=== PATIENT | female | born 1945 | race Caucasian/White ===

== ENCOUNTER 2019-02-02 01:47 | Inpatient (IN) | payer OTHER ==
[2019-02-02] VITALS (7 sets, daily range): BP systolic 115–139; BP diastolic 58–74; PULSE 75–88; RESP 18–20; Ht 170.2 cm; Wt 76.6 kg
[~2019-02-02] VITALS: Ht 170.2 cm; Wt 76.6 kg
[2019-02-02] MEDS ORDERED: SOD CHLORIDE 0.9% 500 ML IV STA (06:33)
[2019-02-02] MEDS ORDERED: AZITHROMYCIN 250 MG TAB PO ONE (08:00)
[2019-02-02] MEDS ORDERED: IBUPROFEN 800 MG TAB PO ONE (08:00)
[2019-02-02] MEDS ORDERED: ASPIRIN 325 MG TAB PO ONE (08:30)
[2019-02-02] MEDS ORDERED: ACETAMINOPHEN 325 MG TAB PO PRN ×2 (08:30→11:00)
[2019-02-02] MEDS ORDERED: ONDANSETRON 4 MG INJ IV PRN ×2 (08:30→11:00)
--- NOTE | 2019-02-02 09:23 | ERD ---
ER Documentation Chief Complaint Chief Complaint glf about 1 hour ago, c/o laceration right upper eyelid. denies ko HPI Patient is a 73-year-old female with hypertension and diabetes who presents after a fall. The patient has an abrasion over her right eye. She fell last night at 2130 against her dresser and she was diffusely weak. She laid against her dresser for a number of hours until a family member found her. She felt we ak prior to falling. She has a cough but she denies chest pain. She had subjective fever at home. She has not on blood thinning medications. She does have a primary doctor. ROS All systems reviewed and are negative except as per history of present illness. Allergies Allergies: Coded Allergies: No Known Drug Allergies (Verified Allergy, Unknown, 02/02/19) PMhx/Soc History of Surgery: Yes (cholesystectomy) Anesthesia Reaction: No Hx Cardiac Disorders: Yes (DM (diet controlled)) Hx Psychiatric Problems: No Hx Miscellaneous Medical Probl: Yes (enlarged thyroid) Hx Alcohol Use: No Hx Substance Use: No Hx Tobacco Use: No Smoking Status: Never smoker FmHx Family History: No diabetes Physical Exam Vitals Vital Signs Date Temp Pulse Resp B/P (MAP) Pulse Ox O2 O2 Flow FiO2 Time Delivery Rate 02/02/19 83 22 144/80 96 Room Air 08:30 (101) 02/02/19 97.8 96 23 122/70 96 Room Air 06:50 (87) 02/02/19 99.7 115 18 137/65 96 01:53 (89) Physical Exam Const: No acute distress Head: Atraumatic Eyes: Normal Conjunctiva ENT: Normal External Ears, Nose and Mouth. Neck: Full range of motion. No meningismus. Resp: Clear to auscultation bilaterally Cardio: Regular rate and rhythm, no murmurs Abd: Soft, non tender, non distended. Normal bowel sounds Skin: Pale skin, abrasion over the right eye, skin tear of the epidermis to the chest wall Back: No midline or flank tenderness Ext: No cyanosis, or edema Neur: Awake and alert Psych: Normal Mood and Affect Result Diagram: 02/02/19 0633 02/02/19 0658 Results 24 hrs Laboratory Tests Test 02/02/19 06:33 02/02/19 06:58 White Blood Count 17.4 10^3/ul Red Blood Count 4.34 10^6/ul Hemoglobin 11.8 g/dl Hematocrit 37.1 % Mean Corpuscular Volume 85.5 fl Mean Corpuscular Hemoglobin 27.2 pg Mean Corpuscular Hemoglobin Concent 31.8 g/dl Red Cell Distribution Width 13.5 % Platelet Count 250 10^3/UL Mean Platelet Volume 9.0 fl Immature Granulocytes % 0.800 % Neutrophils % 89.6 % Lymphocytes % 3.9 % Monocytes % 5.4 % Eosinophils % 0.0 % Basophils % 0.3 % Nucleated Red Blood Cells % 0.0 /100WBC Immature Granulocytes # 0.140 10^3/ul Neutrophils # 15.6 10^3/ul Lymphocytes # 0.7 10^3/ul Monocytes # 0.9 10^3/ul Eosinophils # 0.0 10^3/ul Basophils # 0.1 10^3/ul Nucleated Red Blood Cells # 0.0 10^3/ul Prothrombin Time 13.3 Sec Prothrombin Time Ratio 1.0 INR International Normalized Ratio 1.00 Activated Partial Thromboplast Time 32.1 Sec Sodium Level 144 mmol/L Potassium Level 3.9 mmol/L Chloride Level 112 mmol/L Carbon Dioxide Level 23 mmol/L Anion Gap 9 Blood Urea Nitrogen 35 mg/dl Creatinine 0.71 mg/dl Est Glomerular Filtrat Rate mL/min mL/min Glucose Level 157 mg/dl Calcium Level 10.6 mg/dl Troponin I 0.674 ng/ml Current Medications Medications Dose Sig/Abhi Start Time Status Last (Trade) Ordered Route PRN Stop Time Admin Dose Reason Admin Sodium 500 ml @ Q1H STAT 02/02/19 DC 02/02/19 Chloride 500 mls/hr IV 06:33 02/02/19 07:04 07:32 500 mg ONCE ONCE 02/02/19 DC 02/02/19 Azithromycin PO 08:00 02/02/19 08:08 (Zithromax) 08:01 Ibuprofen 800 mg ONCE ONCE 02/02/19 DC 02/02/19 (Motrin) PO 08:00 02/02/19 08:08 08:01 Aspirin 325 mg ONCE ONCE 02/02/19 DC 02/02/19 (Aspirin) PO 08:30 02/02/19 08:08 08:31 Ondansetron 4 mg BRIDGE ORDER 02/02/19 HCl (Zofran PRN IV 08:30 02/03/19 Inj) NAUSEA/VOMITI 08:29 NG 650 mg ER BRIDGE 02/02/19 Acetaminophen PRN PO 08:30 02/03/19 (Tylenol .MILD PAIN 08:29 Tab) 1-3 OR TEMP Procedures/MDM EKG read by me: Rate/Rhythm: Regular rate and rhythm at a normal rate Intervals: Normal Impression: No evidence of ischemia or arrhythmia Chest x-ray read by radiology shows atelectasis versus pneumonia. Patient is a 73-year-old female with diabetes and hypertension who presents with weakness and fall. Chest x-ray showed atelectasis versus pneumonia but I doubt sepsis. The patient was given Zithromax 500 mg initially in the emergency department. The patient was eventually found to have a positive troponin and I am concerned about an NSTEMI. EKG shows no signs of ST elevations. The patient will be admitted to the care of Dr. Khoury to a telemetry bed. The patient was given aspirin empirically. Departure Diagnosis: Primary Impression: NSTEMI (non-ST elevated myocardial infarction) Additional Impressions: Abrasion Fall Encounter type: initial encounter Qualified Codes: W19.XXXA - Unspecified fall, initial encounter Condition: Serious EVAN ARREAGA MD Feb 02, 2019 09:23
[2019-02-02] MEDS ORDERED: FOLI-49 PO (09:30)
[2019-02-02] MEDS ORDERED: OMEP20CA16 PO (09:30)
[2019-02-02] MEDS ORDERED: PRED2.5T3 PO (09:31)
[2019-02-02] MEDS ORDERED: HYDR200T5 PO (09:31)
[2019-02-02] MEDS ORDERED: PRED5TAB PO (09:31)
[2019-02-02] MEDS ORDERED: CALC500T91 PO (09:32)
[2019-02-02] MEDS ORDERED: ERGO500013 PO (09:33)
[2019-02-02] MEDS ORDERED: PANTOPRAZOLE 40 MG INJ IV ONE (11:00)
[2019-02-02] MEDS ORDERED: NACL 0.9% 3 ML SYG IV SCH (11:00)
[2019-02-02] MEDS ORDERED: DOCUSATE SODIUM 100 MG CAP PO PRN (11:00)
[2019-02-02] MEDS ORDERED: ENOXAPARIN 30 MG/0.3 ML SYG SC SCH (12:00)
[2019-02-02] MEDS: SOD CHLORIDE 0.9% 1,000 ML IV SCH (12:35)
[2019-02-02] MEDS: HYDROXYCHLOROQUINE 200 MG TAB PO SCH (12:38)
[2019-02-02] MEDS: ENOXAPARIN 100 MG/ML SYG SC SCH ×2 (13:30→21:24)
--- NOTE | 2019-02-02 15:17 | QN ---
Documentation Comment seen and examined BARBARA CATALAN MD Feb 02, 2019 15:17
--- NOTE | 2019-02-02 16:30 | HP ---
DATE OF ADMISSION: 02/02/2019 REASON FOR ADMISSION: Fall. HISTORY OF PRESENT ILLNESS: This is a 73-year-old female with a past medical history of hypertension and hyperlipidemia who presented to the emergency department after she had fall at home. According to the patient, she woke up from her bed last night, all of a sudden she felt dizzy and hit against a dresser and she was laid against her dresser for a number of hours until the family member found her. She was feeling also weak prior to falling. The patient was saying that she was having some intermittent left-sided chest pain radiating to the back for a few days. The patient was also having some subjective fevers at home. Patient has history of arthritis. Takes prednisone at home. Denies any history of orthopnea, PND; however, patient notices lower extremity edema. On arrival to ED, vital signs were temperature 99.7, heart rate 115, respirations 18, blood pressure 137/85, saturating 96%. White count 17.4, BUN of 35, creatinine 0.7 and the patient received NS, Zithromax, Motrin, aspirin and Zofran. EKG did not show any acute ST or T wave changes. The patient had a chest x-ray that showed increased density at the bases, likely due to atelectasis, left basilar infiltrate could not be ruled out and the patient was also found to have elevated troponin of 0.674 and was admitted for further management. PAST MEDICAL HISTORY: 1. Hypertension. 2. Arthritis. 3. GERD. 4. Vitamin D deficiency. ALLERGIES: NONE. PAST SURGICAL HISTORY: Cholecystectomy and . MEDICATIONS: Taking at home: 1. Plaquenil 200. 2. Calcium carbonate. 3. Prilosec. 4. Prednisone 2.5 q.p.m. and 5 q.a.m. 5. Ergocalciferol. 6. Folic acid. SOCIAL HISTORY: No history of smoking, alcohol or any drug use. Lives at home with family. FAMILY HISTORY: Noncontributory. REVIEW OF SYSTEMS: As above. PHYSICAL EXAMINATION: VITAL SIGNS: Currently, blood pressure 139/66, afebrile, heart rate 81, respirations 20, saturating 98% on room air. GENERAL: The patient is awake, alert, oriented, does not appear to be on any acute distress. HEENT: Pupils equal, round, reactive to light.rt eye laceration on eyelid NECK: Supple, no JVD. HEART: Regular rate and rhythm. LUNGS: Some decreased breath sounds at the bases. The patient has a left shoulder pain status post fall. Tender to palpation. ABDOMEN: Soft, nontender, nondistended, positive normoactive bowel sounds. EXTREMITIES: There is 1+ edema. skin tear of chest DIAGNOSTIC DATA: Shows sodium 144, potassium 3.9, chloride 112, bicarbonate 23, BUN of 35, creatinine 0.79, calcium 10.6. CK 14,000. Troponin 0.674, white count 17.4, hemoglobin 11.8, platelet count 250. CT of the head is no acute intracranial abnormality. ASSESSMENT AND PLAN: This is a 73-year-old female with: 1. Status post fall. The patient was feeling dizzy before the episode and was having chest pain, could be secondary to non-STEMI/carotid disease/arrhythmia. 2. Elevated troponin, likely secondary to ACS. 3. Fevers, leukocytosis secondary to SIRS source, questionable pneumonia. 4. Questionable rhabdo. 5. History of arthritis. 6. Hypercalcemia on calcium supplement. 7. Arthritis on steroids. 8 Leukocytosis PLAN: At this period of time, the patient will be admitted to tele. The patient will be on aspirin, statin, Lovenox. Echo has been ordered. The patient will get CK-MB serially. Cardiology consult has been consulted. We will start the patient also on broad spectrum IV antibiotics, IV fluids and we will check UA. Rest of the treatment will depend of the patient's hospitalization course. Dictated By: BARBARA MCKEON/MANJULA Conf#: [id number] DID#: [id number] NATA
[2019-02-02] MEDS: CEFTRIAXONE 1 GM/50 ML (PMX) 50 ML IVPB SCH (16:40)
[2019-02-02] MEDS ORDERED: CALCIUM CARBONATE 1.25 GM TAB PO SCH (21:00)
[2019-02-02] MEDS: predniSONE 2.5 MG TAB PO SCH (21:16)
[2019-02-03] VITALS (12 sets, daily range): BP systolic 139–156; BP diastolic 67–95; PULSE 82–97; RESP 18–19
[2019-02-03] MEDS: SOD CHLORIDE 0.9% 1,000 ML IV SCH ×4 (00:23→22:41)
[2019-02-03] MEDS ORDERED: SOD CHLORIDE 0.9% 100 ML ONE (08:38)
[2019-02-03] MEDS ORDERED: IOHEXOL 100 ML ONE (08:38)
[2019-02-03] MEDS: HYDROXYCHLOROQUINE 200 MG TAB PO SCH (08:51)
[2019-02-03] MEDS: predniSONE 5 MG TAB PO SCH (08:51)
[2019-02-03] MEDS: ENOXAPARIN 100 MG/ML SYG SC SCH ×2 (09:40→20:34)
[2019-02-03] MEDS: AZITHROMYCIN 500 MG in SOD CHLORIDE 0.9% 250 ML IVPB SCH (09:53)
--- NOTE | 2019-02-03 12:22 | PN ---
Date/Time of Note Date/Time of Note DATE: 02/03/19 TIME: 12:22 Assessment/Plan VTE Prophylaxis Risk score (from Ns)>0 risk: 7 SCD applied (from Ns): Yes Pharmacological prophylaxis: NA/contraindicated Pharm contraindication: low risk/ambulating Lines/Catheters IV [facility] Saline Lock Urinary Cath still in place: No Assessment/Plan Hospital Course 73-year-old female with: 1. Status post fall. The patient was feeling dizzy before the episode and was having chest pain, could be secondary to non-STEMI/carotid disease/arrhythmia. 2. Elevated troponin, likely secondary to ACS. 3. Fevers, leukocytosis secondary to SIRS source, questionable pneumonia. 4. Rhabdomyolysis likely secondary to prolonged lying down on the ground status post fall 5. History of arthritis. 6. Hypercalcemia on calcium supplement. 7. Arthritis on steroids. 8 Leukocytosis 9 hx rheumatoid arthritis 10 UTI Plan -CWWith aspirin/statin/Lovenox -X-rays of the bilateral shoulders due to pain -CW with NS due to rhabdomyolysis -Echo pending -Given Rocephin and azithromycin -Send urine culture -Cardiology to determine whether stress test versus angiogram Result Diagram: 02/03/19 0547 02/03/19 0547 Results 24hrs Laboratory Tests Test 02/02/19 16:04 02/03/19 05:47 02/03/19 09:46 Creatine Kinase 09850 H Creatine Kinase Index 1.2 Creatinine Kinase MB (Mass) 152.00 H Troponin I 0.452 *H White Blood Count 8.2 # Red Blood Count 3.66 L Hemoglobin 9.9 L Hematocrit 31.5 L Mean Corpuscular Volume 86.1 Mean Corpuscular Hemoglobin 27.0 L Mean Corpuscular 31.4 L Hemoglobin Concent Red Cell Distribution Width 14.1 Platelet Count 195 # Mean Platelet Volume 10.1 Immature Granulocytes % 0.500 H Neutrophils % 85.1 H Lymphocytes % 8.0 L Monocytes % 5.6 Eosinophils % 0.7 Basophils % 0.1 Nucleated Red Blood Cells % 0.0 Immature Granulocytes # 0.040 H Neutrophils # 7.0 Lymphocytes # 0.7 L Monocytes # 0.5 Eosinophils # 0.1 Basophils # 0.0 Nucleated Red Blood Cells # 0.0 D-Dimer > 19359.00 H Sodium Level 144 Potassium Level 3.6 Chloride Level 114 H Carbon Dioxide Level 22 Anion Gap 8 Blood Urea Nitrogen 20 # Creatinine 0.46 Est Glomerular Filtrat Rate mL/min Glucose Level 99 # Calcium Level 9.5 Phosphorus Level 2.8 Magnesium Level 1.9 Urine Color YELLOW Urine Clarity SLIGHTLY CLOUDY A Urine pH 5.0 Urine Specific [place] 1.019 Urine Ketones 2+ H Urine Nitrite NEGATIVE Urine Bilirubin NEGATIVE Urine Urobilinogen NEGATIVE Urine Leukocyte Esterase 3+ H Urine Microscopic RBC 1 Urine Microscopic WBC 179 H Urine Squamous Epithelial Cells FEW Urine Bacteria FEW A Urine Hemoglobin 1+ H Urine Glucose NEGATIVE Urine Total Protein NEGATIVE Subjective 24 Hr Interval Summary Free Text/Dictation Still has pain generlised trop elevated Exam/Review of Systems Exam Vitals Vital Signs Date Temp Pulse Resp B/P (MAP) Pulse Ox O2 O2 Flow FiO2 Time Delivery Rate 02/03/19 93 08:00 02/03/19 97.9 19 156/77 99 07:59 (103) 02/02/19 Room Air 10:15 Intake and Output 02/02/19 02/02/19 02/03/19 1515:00 23:00 07:00 IntakeIntake Total 850 ml 400 ml BalanceBalance 850 ml 400 ml Exam ENERAL: The patient is awake, alert, oriented, does not appear to be on any acute distress. HEENT: Pupils equal, round, reactive to light.rt eye laceration on eyelid NECK: Supple, no JVD. HEART: Regular rate and rhythm. LUNGS: Some decreased breath sounds at the bases. The patient has a left shoulder pain status post fall. Tender to palpation. ABDOMEN: Soft, nontender, nondistended, positive normoactive bowel sounds. EXTREMITIES: There is 1+ edema. skin tear of chest Results Results 24hrs Laboratory Tests Test 02/02/19 16:04 02/03/19 05:47 02/03/19 09:46 Creatine Kinase 59627 H Creatine Kinase Index 1.2 Creatinine Kinase MB (Mass) 152.00 H Troponin I 0.452 *H White Blood Count 8.2 # Red Blood Count 3.66 L Hemoglobin 9.9 L Hematocrit 31.5 L Mean Corpuscular Volume 86.1 Mean Corpuscular Hemoglobin 27.0 L Mean Corpuscular 31.4 L Hemoglobin Concent Red Cell Distribution Width 14.1 Platelet Count 195 # Mean Platelet Volume 10.1 Immature Granulocytes % 0.500 H Neutrophils % 85.1 H Lymphocytes % 8.0 L Monocytes % 5.6 Eosinophils % 0.7 Basophils % 0.1 Nucleated Red Blood Cells % 0.0 Immature Granulocytes # 0.040 H Neutrophils # 7.0 Lymphocytes # 0.7 L Monocytes # 0.5 Eosinophils # 0.1 Basophils # 0.0 Nucleated Red Blood Cells # 0.0 D-Dimer > 80804.00 H Sodium Level 144 Potassium Level 3.6 Chloride Level 114 H Carbon Dioxide Level 22 Anion Gap 8 Blood Urea Nitrogen 20 # Creatinine 0.46 Est Glomerular Filtrat Rate mL/min Glucose Level 99 # Calcium Level 9.5 Phosphorus Level 2.8 Magnesium Level 1.9 Urine Color YELLOW Urine Clarity SLIGHTLY CLOUDY A Urine pH 5.0 Urine Specific [place] 1.019 Urine Ketones 2+ H Urine Nitrite NEGATIVE Urine Bilirubin NEGATIVE Urine Urobilinogen NEGATIVE Urine Leukocyte Esterase 3+ H Urine Microscopic RBC 1 Urine Microscopic WBC 179 H Urine Squamous Epithelial Cells FEW Urine Bacteria FEW A Urine Hemoglobin 1+ H Urine Glucose NEGATIVE Urine Total Protein NEGATIVE Medications Medication Current Medications Sodium Chloride 1,000 ml @ 50 mls/hr Q20H IV Last administered on 02/03/19 08:14; Admin Dose 100 MLS/HR; Start 02/02/19 at 10:53 IV Flush (NS 3 ml) 3 ml PER PROTOCOL IV ; Start 02/02/19 at 11:00 Ondansetron HCl (Zofran Inj) 4 mg Q6H PRN IV NAUSEA/VOMITING; Start 02/02/19 at 11:00 Acetaminophen (Tylenol Tab) 650 mg Q6H PRN PO .PAIN 1-3 OR TEMP Last administered on 02/02/19 16:05; Admin Dose 650 MG; Start 02/02/19 at 11:00 Docusate Sodium (Colace) 100 mg Q12H PRN PO .CONSTIPATION; Start 02/02/19 at 11:00 Hydroxychloroquine Sulfate (Plaquenil) 200 mg DAILY PO Last administered on 02/03/19 08:51; Admin Dose 200 MG; Start 02/02/19 at 13:00 Prednisone (Prednisone) 2.5 mg QPM PO Last administered on 02/02/19 21:16; Admin Dose 2.5 MG; Start 02/02/19 at 21:00 Prednisone (Prednisone) 5 mg QAM PO Last administered on 02/03/19 08:51; Admin Dose 5 MG; Start 02/03/19 at 09:00 Enoxaparin Sodium (Lovenox) 75 mg Q12 SC Last administered on 02/03/19 09:40; Admin Dose 75 MG; Start 02/02/19 at 13:30 Ceftriaxone Sodium 50 ml @ 100 mls/hr Q24H IVPB Last administered on 02/02/19 16:40; Admin Dose 100 MLS/HR; Start 02/02/19 at 15:30 Azithromycin 500 mg/Sodium Chloride 250 ml @ 250 mls/hr DAILY IVPB Last administered on 02/03/19 09:53; Admin Dose 250 MLS/HR; Start 02/03/19 at 09:00 BARBARA CATALAN MD Feb 03, 2019 12:22
[2019-02-03] MEDS ORDERED: morphine 2 MG INJ IV PRN (12:30)
[2019-02-03] MEDS: CEFTRIAXONE 1 GM/50 ML (PMX) 50 ML IVPB SCH (15:24)
--- NOTE | 2019-02-03 16:34 | RADRPT ---
Echocardiogram Report Patient Name: MALATHI TORRESPatient ID: [id number] : 1945 (74y )Study Date: 02/02/2019 1:38:27 PM Gender: FAccession #: [id number] Tech: Alayna Arnold [facility] Location: [facility] Ref.Physician: BARBARA CATALAN Height(Cm): BSA: Weight(Kg): Quality: AdequateAccount #: Procedures: Echocardiographic Report: Transthoracic echocardiogram with complete 2D, M-Mode, and doppler examination. Indications: Elevated troponin. Measurements: 2D/M Mode Doppler Measurement Value Normal Range Measurement Value Normal Range LVIDd 2D 3.0 [ 3.8 - 5.2 ] cm AV Peak Austen 1.5 [ 100.0 - 170.0 ] cm/sec LVIDs 2D 1.6 [ 2.2 - 3.5 ] cm AV Peak PG 9.0 [ 2.0 - 9.0 ] mmHg LVPWd 2D 1.0 [ 0.6 - 0.9 ] cm LVOT Peak Austen 1.1 [ 70.0 - 110.0 ] cm/sec IVSd 2D 1.1 [ 0.6 - 0.9 ] cm LVOT Peak PG 5.0 [ 2.0 - 6.0 ] mmHg IVS/LVPW 2D 1.1 ratio MV E Peak Austen 0.8 [ 60.0 - 130.0 ] cm/sec AoR Diam 2D 2.9 [ 2.3 - 3.1 ] cm MV A Peak Austen 1.3 [ 100.0 - 120.0 ] cm/sec LA/Ao 2D 1 ratio MV E/A 0.6 [ 0.8 - 1.5 ] ratio LA Dimen 2D 2.8 [ 2.7 - 3.8 ] cm MV Decel Time 250 [ 104 - 258 ] msec Lat E` Austen 0.1 [ 10.0 - 15.0 ] cm/sec MV E/A 0.6 [ 0.8 - 1.5 ] ratio TR Peak Austen 3.0 [ 100.0 - 280.0 ] cm/sec TR Peak PG 35.0 mmHg RVSP 43.0 [ 10.0 - 36.0 ] mmHg RA Pressure 8.0 mmHg Findings: Left Ventricle: Normal left ventricular systolic function. Normal left ventricular cavity size. Normal left ventricular wall thickness. Ejection fraction is visually estimated at 65 %. Tissue Doppler/Mitral Doppler indices are consistent with impaired relaxation (Stage I diastolic dysfunction). Right Ventricle: Normal right ventricular size. Normal right ventricular systolic function. Left Atrium: The left atrium is normal in size. Right Atrium: The right atrium is normal in size. Mitral Valve: Normal appearance of the mitral valve. Mild mitral annular calcification. Trace mitral regurgitation. Aortic Valve: Normal appearance of the aortic valve. No significant aortic stenosis or insufficiency. Tricuspid Valve: Normal appearance of the tricuspid valve. Estimated peak PA systolic pressure 43 mmHg. There is mild tricuspid regurgitation. Pulmonic Valve: Normal pulmonic valve appearance. Pericardium: Normal pericardium with no significant pericardial effusion. Aorta: Normal aortic root. IVC: Dilated IVC with respiratory collapse consistent with elevated right atrial pressure. Conclusions: Normal left ventricular systolic function. Normal left ventricular cavity size. Normal left ventricular wall thickness. Ejection fraction is visually estimated at 65 %. Tissue Doppler/Mitral Doppler indices are consistent with impaired relaxation (Stage I diastolic dysfunction). Normal appearance of the mitral valve. Mild mitral annular calcification. Trace mitral regurgitation. Normal appearance of the tricuspid valve. Estimated peak PA systolic pressure 43 mmHg. There is mild tricuspid regurgitation. Electronically Signed By: Juan Hudson 2019-02-03 16:33:12 PST
--- NOTE | 2019-02-03 16:48 | CONS ---
DATE OF ADMISSION: 02/02/2019 DATE OF CONSULTATION: 02/03/2019 TYPE OF CONSULTATION: Cardiology. REASON FOR CONSULTATION: Positive troponin. REQUESTING PHYSICIAN: Hannah Khoury MD HISTORY OF PRESENT ILLNESS: Ms. Goff is a 73-year-old female with past medical history of hypert ension and dyslipidemia, who presented status post a fall. The patient reportedly woken up the night and when she stood up, she felt very dizzy and subsequently fell down. It is unclear if the patient had complete loss of consciousness. The patient was down on the floor and found by family member an d had complaints of some chest pain. Initially, the patient was having fevers at home. Upon arrival in the emergency department, temperature was 99.7, blood pressure 137/65, pulse 115, respiratory rat e 18, satting 93%. The patient's labs showed white blood cell count of 17.4, hemoglobin 11.8, platel et count of 250, sodium of 144, potassium 3.9, creatinine of 0.7, BUN 35, troponin of 0.674, CK of 14 ,008, INR 1. UA is positive. The patient underwent several x-rays including chest x-ray that reveal ed hyperinflated chest, increased density at the bases likely due to atelectasis, rule out left basil ar infiltrate, a head CT that revealed no acute intracranial abnormality, a venous ultrasound that re vealed no sonographic evidence for DVT and a CTA of the chest that revealed no evidence of pulmonary embolism, borderline cardiomegaly, prominent central pulmonary artery, not significant elevation of l eft hemidiaphragm, right thyroid lobe was markedly enlarged. The patient's electrocardiogram reveale d normal sinus rhythm, rate of 88 with left axis deviation, T-wave flattening in aVL. The patient wa s subsequently admitted to the floor and since admit to the floor, has been monitored on telemetry mo nitoring revealing sinus rhythm, no significant arrhythmias or pauses. PAST MEDICAL HISTORY: As above in HPI. MEDICATIONS CURRENTLY IN HOSPITAL: 1. Tramadol. 2. Morphine. 3. Prednisone. 4. Azithromycin. 5. Ceftriaxone. 6. Lovenox 75 mg subcutaneously q.12. 7. Hydroxychloroquine. 8. Tylenol p.r.n. 9. Zofran p.r.n. ALLERGIES: NO KNOWN DRUG ALLERGIES. SOCIAL HISTORY: No current tobacco, EtOH or illicit drug use. FAMILY HISTORY: No history of sudden cardiac or early CAD. REVIEW OF SYSTEMS: As above in HPI. CONSTITUTIONAL: No fevers, chills. PULMONARY: No current shortness of breath. CARDIOVASCULAR: No current chest pain. GASTROINTESTINAL: No vomiting. GENITOURINARY: No hematuria. MUSCULOSKELETAL: Degenerative joint disease. PSYCHIATRIC: No documented psych history. NEUROLOGIC: No documented history of CVA. ENDOCRINE: No documented history of diabetes mellitus. PHYSICAL EXAMINATION: VITAL SIGNS: Temperature of 97.6, blood pressure most recently 139/95, pulse 95, respiratory rate 19 , satting 94%. GENERAL: The patient is alert, awake, in no acute distress. NECK: JVP is approximately 8 to 9 cm of water. CHEST: Fair air movement throughout. HEART: Regular rate and rhythm. Normal S1, S2, I/ systolic murmur, nondisplaced PMI. ABDOMEN: Positive bowel sounds, soft. EXTREMITIES: No edema, 1+ pulses bilateral posterior tibial. LABORATORIES: Most recently from today, sodium 144, potassium 3.6, creatinine 0.4, BUN of 20. White blood cell count 8.2, hemoglobin 9.9, platelet count 195. IMAGING STUDIES: As above in HPI. No further imaging studies for my review at this time. ELECTROCARDIOGRAM: As above in HPI. No further electrocardiogram for my review at this time. IMPRESSION: 1. Positive troponin concerning for non-ST elevation myocardial infarction in patient status post fa ll, only downtrend by catheterization. 2. Chest pain per report prior to admit to the hospital. 3. Hypertension, mildly elevated. 4. Status post fall, rule cardiac etiology, rule out cardiac arrhythmia. 5. Anemia. 6. Urinary tract infection. 7. Increase CK concerning for rhabdomyolysis. The patient is lying on the ground for a long time, l ikely etiology. 8. Fevers. Assess for source of infection. 9. Degenerative joint disease, on steroids. RECOMMENDATIONS: 1. At this time, we would maintain the patient on telemetry monitoring to follow rhythm and rate con trol closely. 2. We would initiate the patient on beta sandrita to improve blood pressure and heart rate control an d decrease O2 demand in the setting of acute MT. 3. Continue patient's Lovenox and we will start the patient on aspirin. 4. Check a 2D echo to reassess the patient's ejection fraction, wall motion, rule out major valve ab normalities. 5. We will continue serial EKGs, assess for significant ongoing changes. 6. We will check fasting lipid panel for general risk stratification and we will initiate lipid lowe ring medication as necessary. 7. Continue the patient's antibiotics and follow up all culture data including urine culture. 8. Given the patient's positive troponins, the patient will likely need further assessment of her co ronary vasculature likely with direct catheterization versus cardiac stress test and thus we will dis cuss this with the patient and patient's family members. Thank you for allowing me to take part in the care of this patient. I will continue to follow her ve ry closely with you with further recommendations to be made as the [facility] Dictated By: JUN DAVIS/MANJULA Conf#: [id number] DID#: [id number] CC: HANNAH KHOURY;*End*
[2019-02-03] MEDS: METOPROLOL 25 MG TAB PO SCH (20:26)
[2019-02-03] MEDS: ATORVASTATIN 40 MG TAB PO SCH (20:26)
[2019-02-03] MEDS: predniSONE 2.5 MG TAB PO SCH (20:26)
[2019-02-03] MEDS: traMADol 50 MG TAB PO PRN (20:27)
[2019-02-04] VITALS (12 sets, daily range): BP systolic 119–161; BP diastolic 61–82; PULSE 70–90; RESP 17–19
[2019-02-04] MEDS: SOD CHLORIDE 0.9% 1,000 ML IV SCH ×4 (04:17→23:35)
[2019-02-04] MEDS: AZITHROMYCIN 500 MG in SOD CHLORIDE 0.9% 250 ML IVPB SCH (08:15)
[2019-02-04] MEDS: predniSONE 5 MG TAB PO SCH (08:15)
[2019-02-04] MEDS: METOPROLOL 25 MG TAB PO SCH ×2 (08:15→20:29)
[2019-02-04] MEDS: HYDROXYCHLOROQUINE 200 MG TAB PO SCH (08:16)
[2019-02-04] MEDS: ENOXAPARIN 100 MG/ML SYG SC SCH ×2 (08:22→20:48)
--- NOTE | 2019-02-04 10:19 | PN ---
Date/Time of Note Date/Time of Note DATE: 02/04/19 TIME: 10:19 Assessment/Plan VTE Prophylaxis Risk score (from Ns)>0 risk: 8 SCD applied (from Ns): Yes Pharmacological prophylaxis: NA/contraindicated Pharm contraindication: low risk/ambulating Lines/Catheters IV Catheter Type (from Nrsg): Saline Lock Urinary Cath still in place: No Assessment/Plan Assessment/Plan 3-year-old female with: 1. Status post fall. The patient was feeling dizzy before the episode and was having chest pain, could be secondary to non-STEMI/carotid disease/arrhythmia. 2. Elevated troponin, likely secondary to ACS. 3. Fevers, leukocytosis secondary to SIRS source, questionable pneumonia. 4. Rhabdomyolysis likely secondary to prolonged lying down on the ground status post fall 5. History of arthritis. 6. Hypercalcemia on calcium supplement. 7. Arthritis on steroids. 8 Leukocytosis 9 hx rheumatoid arthritis on steroids, Osteolysis of the right clavicle 10 UTI Plan -CW With aspirin/statin/Lovenox -CW with NS due to rhabdomyolysis which are improving -Ortho consult for ostiysis of right clavicle -Given Rocephin and azithromycin -Send urine culture -Likely left heart cath tomorrow -Continue with prednisone/ plaquenil for rheumatoid arthritis Result Diagram: 02/03/19 0547 02/03/19 0547 Results 24hrs Laboratory Tests Test 02/04/19 05:41 Troponin I 0.169 *H Triglycerides Level 74 Cholesterol Level 98 L LDL Cholesterol, Calculated 51 HDL Cholesterol 32 L Cholesterol/HDL Ratio 3.0 Subjective 24 Hr Interval Summary Free Text/Dictation Patient feels a lot better today. Sitting on the side of the bed Troponins are downtrending Exam/Review of Systems Exam Vitals Vital Signs Date Temp Pulse Resp B/P (MAP) Pulse Ox O2 O2 Flow FiO2 Time Delivery Rate 02/04/19 79 08:00 02/04/19 97.8 19 137/76 93 07:12 (96) 02/04/19 Room Air 04:09 Intake and Output 02/03/19 02/03/19 02/04/19 1515:00 23:00 07:00 IntakeIntake Total 1670 ml 1220 ml BalanceBalance 1670 ml 1220 ml Exam ENERAL: The patient is awake, alert, oriented, does not appear to be on any acute distress. HEENT: Pupils equal, round, reactive to light.rt eye laceration on eyelid NECK: Supple, no JVD. HEART: Regular rate and rhythm. LUNGS: Some decreased breath sounds at the bases. The patient has a left shoulder pain status post fall. Tender to palpation. ABDOMEN: Soft, nontender, nondistended, positive normoactive bowel sounds. EXTREMITIES: There is 1+ edema. skin tear of chest Results Results 24hrs Laboratory Tests Test 02/04/19 05:41 Troponin I 0.169 *H Triglycerides Level 74 Cholesterol Level 98 L LDL Cholesterol, Calculated 51 HDL Cholesterol 32 L Cholesterol/HDL Ratio 3.0 Medications Medication Current Medications Sodium Chloride 1,000 ml @ 100 mls/hr Q10H IV Last administered on 02/04/19 08:14; Admin Dose 100 MLS/HR; Start 02/02/19 at 10:53 IV Flush (NS 3 ml) 3 ml PER PROTOCOL IV ; Start 02/02/19 at 11:00 Ondansetron HCl (Zofran Inj) 4 mg Q6H PRN IV NAUSEA/VOMITING; Start 02/02/19 at 11:00 Acetaminophen (Tylenol Tab) 650 mg Q6H PRN PO .PAIN 1-3 OR TEMP Last administered on 02/02/19at 16:05; Admin Dose 650 MG; Start 02/02/19 at 11:00 Docusate Sodium (Colace) 100 mg Q12H PRN PO .CONSTIPATION; Start 02/02/19 at 11:00 Hydroxychloroquine Sulfate (Plaquenil) 200 mg DAILY PO Last administered on 02/04/19at 08:16; Admin Dose 200 MG; Start 02/02/19 at 13:00 Prednisone (Prednisone) 2.5 mg QPM PO Last administered on 02/03/19 20:26; Admin Dose 2.5 MG; Start 02/02/19 at 21:00 Prednisone (Prednisone) 5 mg QAM PO Last administered on 02/04/19 08:15; Admin Dose 5 MG; Start 02/03/19 at 09:00 Enoxaparin Sodium (Lovenox) 75 mg Q12 SC Last administered on 02/04/19 08:22; Admin Dose 75 MG; Start 02/02/19 at 13:30 Ceftriaxone Sodium 50 ml @ 100 mls/hr Q24H IVPB Last administered on 02/03/19 15:24; Admin Dose 100 MLS/HR; Start 02/02/19 at 15:30 Azithromycin 500 mg/Sodium Chloride 250 ml @ 250 mls/hr DAILY IVPB Last administered on 02/04/19 08:15; Admin Dose 250 MLS/HR; Start 02/03/19 at 09:00 Tramadol HCl (Ultram) 50 mg Q6H PRN PO MODERATE PAIN LEVEL 4-6 Last administered on 02/03/19 20:27; Admin Dose 50 MG; Start 02/03/19 at 12:30 Morphine Sulfate (morphine) 2 mg Q4H PRN IV SEVERE PAIN LEVEL 7-10; Start 02/03/19 at 12:30 Metoprolol Tartrate (Lopressor) 25 mg BID PO Last administered on 02/04/19 08:15; Admin Dose 25 MG; Start 02/03/19 at 21:00 Atorvastatin Calcium (Lipitor) 40 mg HS PO Last administered on 02/03/19 20:26; Admin Dose 40 MG; Start 02/03/19 at 21:00 BARBARA CATALAN MD Feb 04, 2019 10:19
--- NOTE | 2019-02-04 12:54 | CONS ---
Assessment/Plan Assessment/Plan Hospital Course (Demo Recall) IMPRESSION: 1. Positive troponin concerning for non-ST elevation myocardial infarction in patient status post fall-downtrended. NL EF by echo this admit 2. Chest pain per report prior to admit to the hospital. 3. Hypertension, mildly elevated. 4. Status post fall, rule cardiac etiology, rule out cardiac arrhythmia. 5. Anemia. 6. Urinary tract infection. 7. Increase CK concerning for rhabdomyolysis. The patient is lying on the ground for a long time, likely etiology. 8. Fevers. Assess for source of infection. 9. Degenerative joint disease, on steroids. Recc: -Tele -serial ecg's -Continue BB/statin -start asa and continue lovenox. For [facility] tomorrow afternoon. First available o pening in cathlab Consultation Date/Type/Reason Admit Date/Time Feb 02, 2019 at 08:23 Initial Consult Date 02/03/19 Type of Consult Cardiology Reason for Consultation Nstemi Requesting Provider: BARBARA CATALAN MD Date/Time of Note DATE: 02/04/19 TIME: 12:50 Exam/Review of Systems Vital Signs Vitals Vital Signs Date Temp Pulse Resp B/P (MAP) Pulse Ox O2 O2 Flow FiO2 Time Delivery Rate 02/04/19 70 12:00 02/04/19 98.0 119/61 11:17 (80) 02/04/19 93 07:12 02/04/19 Room Air 04:09 Intake and Output 02/03/19 02/03/19 02/04/19 1414:59 22:59 06:59 IntakeIntake Total 1670 ml 1220 ml BalanceBalance 1670 ml 1220 ml Exam Exam Review of Systems: CONSTITUTIONAL: No fevers, chills. PULMONARY: No sob CARDIOVASCULAR: No chest pain/palpitations GASTROINTESTINAL: No nausea/vomiting. GENITOURINARY: No hematuria/dysuria. MUSCULOSKELETAL: No myagias/arthalgias. PSYCHIATRIC: The patient denies depression. NEUROLOGIC: No weakness Constitutional: alert, oriented Psych: no complaints Head: normocephalic ENMT: mucosa pink and moist Neck: supple, jvd (9 cm water) Respiratory: diminished breath sounds (at bases/B) Cardiovascular: regular rate and rhythm Gastrointestinal: soft, non-tender Musculoskeletal: muscle tone (normal) Extremities: edema (none) Neurological: other (No focal deficits) Labs Result Diagram: 02/03/19 0547 02/03/19 0547 Results 24hrs Laboratory Tests Test 02/04/19 05:22 02/04/19 05:41 Creatine Kinase 1478 #H Troponin I 0.169 *H Triglycerides Level 74 Cholesterol Level 98 L LDL Cholesterol, Calculated 51 HDL Cholesterol 32 L Cholesterol/HDL Ratio 3.0 Medications Medications Current Medications Sodium Chloride 1,000 ml @ 100 mls/hr Q10H IV Last administered on 02/04/19 08:14; Admin Dose 100 MLS/HR; Start 02/02/19 at 10:53 IV Flush (NS 3 ml) 3 ml PER PROTOCOL IV ; Start 02/02/19 at 11:00 Ondansetron HCl (Zofran Inj) 4 mg Q6H PRN IV NAUSEA/VOMITING; Start 02/02/19 at 11:00 Acetaminophen (Tylenol Tab) 650 mg Q6H PRN PO .PAIN 1-3 OR TEMP Last administered on 02/02/19 16:05; Admin Dose 650 MG; Start 02/02/19 at 11:00 Docusate Sodium (Colace) 100 mg Q12H PRN PO .CONSTIPATION; Start 02/02/19 at 11:00 Hydroxychloroquine Sulfate (Plaquenil) 200 mg DAILY PO Last administered on 02/04/19 08:16; Admin Dose 200 MG; Start 02/02/19 at 13:00 Prednisone (Prednisone) 2.5 mg QPM PO Last administered on 02/03/19 20:26; Admin Dose 2.5 MG; Start 02/02/19 at 21:00 Prednisone (Prednisone) 5 mg QAM PO Last administered on 02/04/19 08:15; Admin Dose 5 MG; Start 02/03/19 at 09:00 Enoxaparin Sodium (Lovenox) 75 mg Q12 SC Last administered on 02/04/19 08:22; Admin Dose 75 MG; Start 02/02/19 at 13:30 Ceftriaxone Sodium 50 ml @ 100 mls/hr Q24H IVPB Last administered on 02/03/19 15:24; Admin Dose 100 MLS/HR; Start 02/02/19 at 15:30 Azithromycin 500 mg/Sodium Chloride 250 ml @ 250 mls/hr DAILY IVPB Last administered on 02/04/19 08:15; Admin Dose 250 MLS/HR; Start 02/03/19 at 09:00 Tramadol HCl (Ultram) 50 mg Q6H PRN PO MODERATE PAIN LEVEL 4-6 Last administered on 02/03/19 20:27; Admin Dose 50 MG; Start 02/03/19 at 12:30 Morphine Sulfate (morphine) 2 mg Q4H PRN IV SEVERE PAIN LEVEL 7-10; Start 02/03/19 at 12:30 Metoprolol Tartrate (Lopressor) 25 mg BID PO Last administered on 02/04/19 08:15; Admin Dose 25 MG; Start 02/03/19 at 21:00 Atorvastatin Calcium (Lipitor) 40 mg HS PO Last administered on 02/03/19 20:26; Admin Dose 40 MG; Start 02/03/19 at 21:00 JUN NEUMANN Feb 04, 2019 12:54
[2019-02-04] MEDS: CEFTRIAXONE 1 GM/50 ML (PMX) 50 ML IVPB SCH (14:28)
[2019-02-04] MEDS: ATORVASTATIN 40 MG TAB PO SCH (20:28)
[2019-02-04] MEDS: predniSONE 2.5 MG TAB PO SCH (20:28)
[2019-02-04] MEDS: traMADol 50 MG TAB PO PRN (20:29)
[2019-02-05] VITALS (21 sets, daily range): BP systolic 138–179; BP diastolic 66–118; PULSE 64–86; RESP 11–25
[2019-02-05] MEDS: ENOXAPARIN 100 MG/ML SYG SC SCH ×2 (08:16→21:15)
[2019-02-05] MEDS: predniSONE 5 MG TAB PO SCH (08:25)
[2019-02-05] MEDS: AZITHROMYCIN 500 MG in SOD CHLORIDE 0.9% 250 ML IVPB SCH (08:25)
[2019-02-05] MEDS: SOD CHLORIDE 0.9% 1,000 ML IV SCH (08:25)
[2019-02-05] MEDS: METOPROLOL 25 MG TAB PO SCH ×2 (08:25→21:14)
[2019-02-05] MEDS: HYDROXYCHLOROQUINE 200 MG TAB PO SCH (08:26)
--- NOTE | 2019-02-05 11:51 | CONS ---
Assessment/Plan Assessment/Plan Hospital Course (Demo Recall) IMPRESSION: 1. Positive troponin concerning for non-ST elevation myocardial infarction in patient status post fall-downtrended. NL EF by echo this admit 2. Chest pain per report prior to admit to the hospital. 3. Hypertension, mildly elevated. 4. Status post fall, rule cardiac etiology, rule out cardiac arrhythmia. 5. Anemia. 6. Urinary tract infection. 7. Increase CK concerning for rhabdomyolysis. The patient is lying on the ground for a long time, likely etiology. 8. Fevers. Assess for source of infection. 9. Degenerative joint disease, on steroids. Recc: -Tele -serial ecg's -Continue BB/statin -LHC with possible PTCA/stent today -Holding lovenox for cath today Consultation Date/Type/Reason Admit Date/Time Feb 02, 2019 at 08:23 Initial Consult Date 02/03/19 Type of Consult Cardiology Reason for Consultation Nstemi Requesting Provider: BARBARA CATALAN MD Date/Time of Note DATE: 02/05/19 TIME: 11:49 Exam/Review of Systems Vital Signs Vitals Vital Signs Date Temp Pulse Resp B/P (MAP) Pulse Ox O2 O2 Flow FiO2 Time Delivery Rate 02/05/19 98.1 64 19 143/76 95 11:20 (98) 02/04/19 Room Air 04:09 Intake and Output 02/04/19 02/04/19 02/05/19 1515:00 23:00 07:00 IntakeIntake Total 820 ml 1340 ml BalanceBalance 820 ml 1340 ml Exam Exam Review of Systems: CONSTITUTIONAL: No fevers, chills. PULMONARY: No sob CARDIOVASCULAR:intermittent chest pain GASTROINTESTINAL: No nausea/vomiting. GENITOURINARY: No hematuria/dysuria. MUSCULOSKELETAL: No myagias/arthalgias. PSYCHIATRIC: The patient denies depression. NEUROLOGIC: No weakness Constitutional: alert Psych: no complaints Head: normocephalic ENMT: mucosa pink and moist Neck: supple, jvd (9 cm water) Respiratory: diminished breath sounds (at bases/B) Cardiovascular: regular rate and rhythm Gastrointestinal: soft, non-tender Musculoskeletal: muscle tone (normal) Extremities: edema (trace/B) Neurological: other (No focal deficits) Labs Result Diagram: 02/05/1944 3/8/19 0544 Results 24hrs Laboratory Tests Test 02/05/19 05:44 White Blood Count 5.8 # Red Blood Count 3.51 L Hemoglobin 9.4 L Hematocrit 30.4 L Mean Corpuscular Volume 86.6 Mean Corpuscular Hemoglobin 26.8 L Mean Corpuscular Hemoglobin Concent 30.9 L Red Cell Distribution Width 13.7 Platelet Count 204 Mean Platelet Volume 9.5 Immature Granulocytes % 0.500 H Neutrophils % 74.2 Lymphocytes % 15.0 Monocytes % 7.0 Eosinophils % 3.0 Basophils % 0.3 Nucleated Red Blood Cells % 0.0 Immature Granulocytes # 0.030 Neutrophils # 4.3 Lymphocytes # 0.9 Monocytes # 0.4 Eosinophils # 0.2 Basophils # 0.0 Nucleated Red Blood Cells # 0.0 Prothrombin Time 13.0 Prothrombin Time Ratio 1.0 INR International Normalized Ratio 0.97 Activated Partial Thromboplast Time 46.4 H Sodium Level 144 Potassium Level 3.8 Chloride Level 112 H Carbon Dioxide Level 27 Anion Gap 5 Blood Urea Nitrogen 17 Creatinine 0.52 Est Glomerular Filtrat Rate mL/min Glucose Level 112 Calcium Level 9.4 Phosphorus Level 3.2 Magnesium Level 1.9 Cholesterol Level 89 L Medications Medications Current Medications Sodium Chloride 1,000 ml @ 100 mls/hr Q10H IV Last administered on 02/05/19at 08:25; Admin Dose 100 MLS/HR; Start 02/02/19 at 10:53 IV Flush (NS 3 ml) 3 ml PER PROTOCOL IV ; Start 02/02/19 at 11:00 Ondansetron HCl (Zofran Inj) 4 mg Q6H PRN IV NAUSEA/VOMITING; Start 02/02/19 at 11:00 Acetaminophen (Tylenol Tab) 650 mg Q6H PRN PO .PAIN 1-3 OR TEMP Last administered on 02/02/19at 16:05; Admin Dose 650 MG; Start 02/02/19 at 11:00 Docusate Sodium (Colace) 100 mg Q12H PRN PO .CONSTIPATION; Start 02/02/19 at 11:00 Hydroxychloroquine Sulfate (Plaquenil) 200 mg DAILY PO Last administered on 02/05/19at 08:26; Admin Dose 200 MG; Start 02/02/19 at 13:00 Prednisone (Prednisone) 2.5 mg QPM PO Last administered on 3/7/19at 20:28; Admin Dose 2.5 MG; Start 02/02/19 at 21:00 Prednisone (Prednisone) 5 mg QAM PO Last administered on 02/05/19 08:25; Admin Dose 5 MG; Start 02/03/19 at 09:00 Enoxaparin Sodium (Lovenox) 75 mg Q12 SC Last administered on 02/04/19 20:48; Admin Dose 75 MG; Start 02/02/19 at 13:30 Ceftriaxone Sodium 50 ml @ 100 mls/hr Q24H IVPB Last administered on 02/04/19 14:28; Admin Dose 100 MLS/HR; Start 02/02/19 at 15:30 Azithromycin 500 mg/Sodium Chloride 250 ml @ 250 mls/hr DAILY IVPB Last administered on 02/05/19 08:25; Admin Dose 250 MLS/HR; Start 02/03/19 at 09:00 Tramadol HCl (Ultram) 50 mg Q6H PRN PO MODERATE PAIN LEVEL 4-6 Last administered on 02/04/19 20:29; Admin Dose 50 MG; Start 02/03/19 at 12:30 Morphine Sulfate (morphine) 2 mg Q4H PRN IV SEVERE PAIN LEVEL 7-10; Start 02/03/19 at 12:30 Metoprolol Tartrate (Lopressor) 25 mg BID PO Last administered on 02/05/19 08:25; Admin Dose 25 MG; Start 02/03/19 at 21:00 Atorvastatin Calcium (Lipitor) 40 mg HS PO Last administered on 02/04/19 20:28; Admin Dose 40 MG; Start 02/03/19 at 21:00 Diazepam (Valium) 5 mg OC ONCE PO ; Start 02/05/19 at 13:00; Stop 02/05/19 at 13:01 Diphenhydramine HCl (Benadryl) 50 mg OC ONCE PO ; Start 02/05/19 at 13:00; Stop 02/05/19 at 13:01 JUN NEUMANN Feb 05, 2019 11:51
[2019-02-05] MEDS ORDERED: DIAZEPAM 5 MG TAB PO ONE (13:00)
[2019-02-05] MEDS ORDERED: DIPHENHYDRAMINE 50 MG CAP PO ONE (13:00)
--- NOTE | 2019-02-05 14:13 | RADRPT ---
Vent Rate: 70 bpm RR Interval: 0 msec CO Interval: 138 msec QRS Duration: 82 msec QT Interval: 380 msec QTC Interval: 410 msec P-R-T [place]: 29 - -10 - 49 degrees Normal sinus rhythm Normal ECG Electronically Signed By: Stefan Fowler
--- NOTE | 2019-02-05 14:18 | RADRPT ---
Vent Rate: 85 bpm RR Interval: 0 msec [place] Interval: 146 msec QRS Duration: 82 msec QT Interval: 370 msec QTC Interval: 440 msec P-R-T [place]: 37 - -20 - 56 degrees Sinus rhythm with premature supraventricular complexes Otherwise normal ECG Electronically Signed By: Stefan Fowler
--- NOTE | 2019-02-05 14:52 | PN ---
Date/Time of Note Date/Time of Note DATE: 02/05/19 TIME: 14:47 Assessment/Plan VTE Prophylaxis Risk score (from Ns)>0 risk: 11 SCD applied (from Ns): Yes Pharmacological prophylaxis: NA/contraindicated Pharm contraindication: low risk/ambulating Lines/Catheters IV [facility]from [facility] Saline Lock Urinary Cath still in place: No Assessment/Plan Hospital Course 73-year-old female with: 1. Status post fall. The patient was feeling dizzy before the episode and was having chest pain, could be secondary to non-STEMI/carotid disease/arrhythmia. 2. Elevated troponin, likely secondary to ACS. 3. Fevers, leukocytosis secondary to SIRS source, questionable pneumonia. 4. Rhabdomyolysis likely secondary to prolonged lying down on the ground status post fall improvement status post hydration 5. History of arthritis. 6. Hypercalcemia on calcium supplement. 7. Arthritis on steroids. 8 Leukocytosis improved s/p iv abx 9 hx rheumatoid arthritis 10 UTI> 100, 000 cfu mixed organisms Plan -CWith aspirin/statin/MTP -Hold Lovenox before procedure -Decrease NS given the chest x-ray findings -Given Rocephin and azithromycin -Angiogram scheduled today - cw prednisone and Plaquenil for rheumatoid arthritis -repeat labs and CK levels tmw Result Diagram: 02/05/1944 02/05/19 0544 Results 24hrs Laboratory Tests Test 02/05/19 05:44 White Blood Count 5.8 # Red Blood Count 3.51 L Hemoglobin 9.4 L Hematocrit 30.4 L Mean Corpuscular Volume 86.6 Mean Corpuscular Hemoglobin 26.8 L Mean Corpuscular Hemoglobin Concent 30.9 L Red Cell Distribution Width 13.7 Platelet Count 204 Mean Platelet Volume 9.5 Immature Granulocytes % 0.500 H Neutrophils % 74.2 Lymphocytes % 15.0 Monocytes % 7.0 Eosinophils % 3.0 Basophils % 0.3 Nucleated Red Blood Cells % 0.0 Immature Granulocytes # 0.030 Neutrophils # 4.3 Lymphocytes # 0.9 Monocytes # 0.4 Eosinophils # 0.2 Basophils # 0.0 Nucleated Red Blood Cells # 0.0 Prothrombin Time 13.0 Prothrombin Time Ratio 1.0 INR International Normalized Ratio 0.97 Activated Partial Thromboplast Time 46.4 H Sodium Level 144 Potassium Level 3.8 Chloride Level 112 H Carbon Dioxide Level 27 Anion Gap 5 Blood Urea Nitrogen 17 Creatinine 0.52 Est Glomerular Filtrat Rate mL/min Glucose Level 112 Calcium Level 9.4 Phosphorus Level 3.2 Magnesium Level 1.9 Cholesterol Level 89 L Subjective 24 Hr Interval Summary Free Text/Dictation Patient feels better today. ABLE lift her arms now Left heart cath scheduled today Exam/Review of Systems Exam Vitals Vital Signs Date Temp Pulse Resp B/P (MAP) Pulse Ox O2 O2 Flow FiO2 Time Delivery Rate 02/05/19 73 12:28 02/05/19 98.1 19 143/76 95 11:20 (98) 02/04/19 Room Air 04:09 Intake and Output 02/04/19 02/04/19 02/05/19 1414:59 22:59 06:59 IntakeIntake Total 820 ml 1340 ml BalanceBalance 820 ml 1340 ml Exam ENERAL: The patient is awake, alert, oriented, does not appear to be on any acute distress. HEENT: Pupils equal, round, reactive to light.rt eye laceration on eyelid NECK: Supple, no JVD. HEART: Regular rate and rhythm. LUNGS: Some decreased breath sounds at the bases. The patient has a left shoulder pain status post fall. Tender to palpation. ABDOMEN: Soft, nontender, nondistended, positive normoactive bowel sounds. EXTREMITIES: There is 1+ edema. skin tear of chest Results Results 24hrs Laboratory Tests Test 02/05/19 05:44 White Blood Count 5.8 # Red Blood Count 3.51 L Hemoglobin 9.4 L Hematocrit 30.4 L Mean Corpuscular Volume 86.6 Mean Corpuscular Hemoglobin 26.8 L Mean Corpuscular Hemoglobin Concent 30.9 L Red Cell Distribution Width 13.7 Platelet Count 204 Mean Platelet Volume 9.5 Immature Granulocytes % 0.500 H Neutrophils % 74.2 Lymphocytes % 15.0 Monocytes % 7.0 Eosinophils % 3.0 Basophils % 0.3 Nucleated Red Blood Cells % 0.0 Immature Granulocytes # 0.030 Neutrophils # 4.3 Lymphocytes # 0.9 Monocytes # 0.4 Eosinophils # 0.2 Basophils # 0.0 Nucleated Red Blood Cells # 0.0 Prothrombin Time 13.0 Prothrombin Time Ratio 1.0 INR International Normalized Ratio 0.97 Activated Partial Thromboplast Time 46.4 H Sodium Level 144 Potassium Level 3.8 Chloride Level 112 H Carbon Dioxide Level 27 Anion Gap 5 Blood Urea Nitrogen 17 Creatinine 0.52 Est Glomerular Filtrat Rate mL/min Glucose Level 112 Calcium Level 9.4 Phosphorus Level 3.2 Magnesium Level 1.9 Cholesterol Level 89 L Medications Medication Current Medications Sodium Chloride 1,000 ml @ 40 mls/hr Q24H IV Last administered on 02/05/19 08:25; Admin Dose 100 MLS/HR; Start 02/02/19 at 10:53 IV Flush (NS 3 ml) 3 ml PER PROTOCOL IV ; Start 02/02/19 at 11:00 Ondansetron HCl (Zofran Inj) 4 mg Q6H PRN IV NAUSEA/VOMITING; Start 02/02/19 at 11:00 Acetaminophen (Tylenol Tab) 650 mg Q6H PRN PO .PAIN 1-3 OR TEMP Last administered on 02/02/19 16:05; Admin Dose 650 MG; Start 02/02/19 at 11:00 Docusate Sodium (Colace) 100 mg Q12H PRN PO .CONSTIPATION; Start 02/02/19 at 11:00 Hydroxychloroquine Sulfate (Plaquenil) 200 mg DAILY PO Last administered on 02/05/19 08:26; Admin Dose 200 MG; Start 02/02/19 at 13:00 Prednisone (Prednisone) 2.5 mg QPM PO Last administered on 02/04/19 20:28; Admin Dose 2.5 MG; Start 02/02/19 at 21:00 Prednisone (Prednisone) 5 mg QAM PO Last administered on 02/05/19 08:25; Admin Dose 5 MG; Start 02/03/19 at 09:00 Enoxaparin Sodium (Lovenox) 75 mg Q12 SC Last administered on 02/04/19 20:48; Admin Dose 75 MG; Start 02/02/19 at 13:30 Ceftriaxone Sodium 50 ml @ 100 mls/hr Q24H IVPB Last administered on 02/04/19 14:28; Admin Dose 100 MLS/HR; Start 02/02/19 at 15:30 Azithromycin 500 mg/Sodium Chloride 250 ml @ 250 mls/hr DAILY IVPB Last administered on 02/05/19 08:25; Admin Dose 250 MLS/HR; Start 02/03/19 at 09:00 Tramadol HCl (Ultram) 50 mg Q6H PRN PO MODERATE PAIN LEVEL 4-6 Last administered on 02/04/19 20:29; Admin Dose 50 MG; Start 02/03/19 at 12:30 Morphine Sulfate (morphine) 2 mg Q4H PRN IV SEVERE PAIN LEVEL 7-10; Start 02/03/19 at 12:30 Metoprolol Tartrate (Lopressor) 25 mg BID PO Last administered on 02/05/19 08:25; Admin Dose 25 MG; Start 02/03/19 at 21:00 Atorvastatin Calcium (Lipitor) 40 mg HS PO Last administered on 02/04/19at 20:28; Admin Dose 40 MG; Start 02/03/19 at 21:00 BARBARA CATALAN MD Feb 05, 2019 14:52
[2019-02-05] MEDS ORDERED: VERAPAMIL 5 MG INJ ONE (15:26)
[2019-02-05] MEDS ORDERED: LIDOCAINE 1% (MDV) 20 ML INJ ONE (15:26)
[2019-02-05] MEDS ORDERED: FENTAnyl 50 MCG/ML VIAL ONE (15:26)
[2019-02-05] MEDS ORDERED: MIDAZOLAM 1 MG/ML 2 ML INJ ONE (15:26)
[2019-02-05] MEDS ORDERED: HEPARIN 1000 UNITS/ML 10 ML INJ ONE (15:26)
[2019-02-05] MEDS ORDERED: NITROGLYCERIN (IC) 100 MCG/ML INJ ONE (15:27)
[2019-02-05] MEDS ORDERED: SOD CHLORIDE 0.9% 1,000 ML IV SCH (16:05)
--- NOTE | 2019-02-05 16:05 | SIPON ---
Date/Time of Note Date/Time of Note DATE: 02/05/19 TIME: 16:04 Operative Report Preoperative Diagnosis 1.Nstemi Postoperative Diagnosis 1. Non-obstructive cad Operation/Procedure Performed 1.[facility] Surgeon see signature line business assistant 1.[place] Anesthesia: moderate sedation Estimated blood loss: minimal Transfusion Required none Specimen none Grafts/Implants none Complications none JUN NEUMANN Feb 05, 2019 16:05
[2019-02-05] MEDS ORDERED: morphine 2 MG INJ IV PRN (16:30)
[2019-02-05] MEDS ORDERED: ONDANSETRON 4 MG INJ IV PRN (16:30)
[2019-02-05] MEDS ORDERED: AL HYDROX/MG HYDROX/SIMETH 30 ML CUP PO PRN (16:30)
[2019-02-05] MEDS ORDERED: ACETAMINOPHEN 325 MG TAB PO PRN (16:30)
[2019-02-05] MEDS: CEFTRIAXONE 1 GM/50 ML (PMX) 50 ML IVPB SCH (19:13)
--- NOTE | 2019-02-05 20:20 | CARRPT ---
DATE OF PROCEDURE: 02/05/2019 REASON FOR CARDIAC CATHETERIZATION: Non-ST elevation myocardial infarction. TYPE OF PROCEDURES: 1. Left heart catheterization. 2. Coronary echocardiography. 3. Left ventriculogram. 4. Moderate conscious sedation. ATTENDING PHYSICIAN: Jun Hudson MD REFERRING PHYSICIAN: Hannah Catalan MD INDICATION: Non-ST elevation myocardial infarction. TYPE OF ANESTHESIA: Conscious and local. BRIEF HISTORY: Ms. Goff is a very pleasant 73-year-old female with history of hypertension, dysl ipidemia, diabetes mellitus who presented with complaints of shortness of breath and ruled in for non -ST-elevation myocardial infarction. Subsequently, she was placed on medical therapy, now brought to cardiac catheterization lab in order to assess for possibility of significant obstructive coronary a rtery disease lending to symptoms of chest pain and subsequent non-ST elevation myocardial infarction . PROCEDURE IN DETAILS: After informed consent was obtained, the patient was brought to the [facility] cardiac clinical laboratory assistant where her left radial area was prepped and draped in sterile fash ion. A 2% lidocaine was infiltrated into left radial area in order to achieve adequate anesthesia. Using the modified Seldinger technique, the left radial artery was cannulated and a 6-Divehi arterial sheath was placed. A 6-Divehi JL3.5 catheter was used to cannulate the left main coronary ostium. With contrast injection, multiple views of the left coronary arterial system were obtained. JL3.5 wa s removed over a guidewire and a JR4 were used to cannulate the right coronary arterial ostium. With contrast injection, multiple views of the right coronary arterial system were obtained. JR4 was rem obdulia over a guidewire and a 6-Divehi pigtail was passed down the ascending aorta and placed in LV. L VEDP was measured. A 20 mL of contrast were injected and was pullback across the aortic valve to ass ess for significant gradient, which there was none and removed. Subsequently at this time this compl eted procedure. The patient's sheath was removed. TR Band was applied. There were no noted complic ations. FINDINGS: Coronary angiography: Right coronary artery proximally is a 3.5 mm vessel and has no sign ificant focal stenoses throughout its entirety. It is a dominant vessel and therefore gives off a PD A 2 mm with no significant focal stenosis and a 3 mm posterolateral branch with no significant focal stenoses. The left main proximally is a 4 mm vessel with no significant focal stenoses. The circumf aditi proximally is a 3 mm vessel and has mild luminal irregularities in the midportion up to 10% to 20 %. There is a mid branching obtuse marginal 2 mm, no significant focal stenoses. Circumflex continu ation AV groove is a sub 1.5 mm vessel with no significant focal stenoses. The LAD proximally is a 3 .5 mm vessel with an ostial 20% stenosis and its mid portion of LAD, there is 10% to 20% stenosis. R emainder of the LAD is free from significant focal stenoses. There is 2 proximal to mid branching di agonals, each sub 2 mm vessels, with no significant focal stenoses and additionally at the proximal p ortion of the LAD just the takeoff of the proximal diagonal, there is a focal 20% to 30% stenosis. Left ventriculogram revealed a left ventricular ejection fraction of 65%, left ventricular end diasto lic pressure of 15 LV gram, 16 post-LV gram. No significant aortic stenosis by gradient. There was 1+ mitral regurgitation. TOTAL FLUOROSCOPY TIME: 2.6 minutes. TOTAL CONTRAST: 70 mL. IMPRESSION: 1. Very mild nonobstructive coronary artery disease. 2. Preserved left ventricular systolic function. 3. High normal left heart filling pressures. 4. A 1+ mitral regurgitation. 5. Culprit of the patient's pjo-GH-tpjxeegsu myocardial infarction is likely a very small diagonal o r septal OM branch that is no longer present. RECOMMENDATIONS: In light of procedure findings at this time, we would: 1. Maximize medical management. 2. Aggressive risk factor reduction. 3. The patient will be readmitted to the telemetry floor for post-catheterization observation and co ntinued management of her presenting symptoms with probable discharge later this afternoon. Dictated By: JUN DAVIS/MANJULA Conf#: [id number] DID#: [id number] CC: HANNAH CATALAN;*EndCC*
[2019-02-05] MEDS: ATORVASTATIN 40 MG TAB PO SCH (21:14)
[2019-02-05] MEDS: predniSONE 2.5 MG TAB PO SCH (21:14)
[2019-02-06] VITALS (25 sets, daily range): BP systolic 131–175; BP diastolic 65–86; PULSE 63–88; RESP 14–29
[2019-02-06] MEDS: predniSONE 5 MG TAB PO SCH (09:15)
[2019-02-06] MEDS: AZITHROMYCIN 500MG/NS (PMX) 250 ML IVPB SCH (09:15)
[2019-02-06] MEDS: HYDROXYCHLOROQUINE 200 MG TAB PO SCH (09:16)
[2019-02-06] MEDS: METOPROLOL 25 MG TAB PO SCH ×2 (09:16→20:47)
[2019-02-06] MEDS: ENOXAPARIN 100 MG/ML SYG SC SCH (09:17)
--- NOTE | 2019-02-06 15:24 | PN ---
Date/Time of Note Date/Time of Note DATE: 02/06/19 TIME: 15:23 Assessment/Plan VTE Prophylaxis Risk score (from Ns)>0 risk: 7 SCD applied (from Nsg): Yes Pharmacological prophylaxis: LMWH Lines/Catheters IV Catheter Type (from Nrsg): Saline Lock Urinary Cath still in place: No Assessment/Plan Hospital Course 1. Status post fall. The patient was feeling dizzy before the episode and was having chest pain, could be secondary to non-STEMI/carotid disease/arrhythmia. 2. Elevated troponin, likely secondary to ACS. S/p left heart catheterization. pt had coronary echocardiography. 02/05/[address] roe 3. Fevers, leukocytosis secondary to SIRS source, questionable pneumonia. 4. Rhabdomyolysis likely secondary to prolonged lying down on the ground status post fall improvement status post hydration, resolveed 5. History of arthritis. 6. Hypercalcemia , resolved 7. Arthritis on steroids. 8 Leukocytosis improved s/p iv abx, normal now 9 hx rheumatoid arthritis 10 UTI> 100, 000 cfu mixed organisms Assessment/Plan -C With aspirin/statin/MTP -DVT prophylaxis Lovenox BID -c/w Rocephin and azithromycin - cw prednisone and Plaquenil for rheumatoid arthritis -repeat labs and CK levels tmw Result Diagram: 02/06/19 0502/06/19 0523 Results 24hrs Laboratory Tests Test 02/06/19 05:23 White Blood Count 5.7 Red Blood Count 3.66 L Hemoglobin 9.8 L Hematocrit 31.3 L Mean Corpuscular Volume 85.5 Mean Corpuscular Hemoglobin 26.8 L Mean Corpuscular Hemoglobin Concent 31.3 L Red Cell Distribution Width 13.4 Platelet Count 229 Mean Platelet Volume 9.2 Immature Granulocytes % 0.500 H Neutrophils % 73.3 Lymphocytes % 15.8 Monocytes % 6.7 Eosinophils % 3.3 Basophils % 0.4 Nucleated Red Blood Cells % 0.0 Immature Granulocytes # 0.030 Neutrophils # 4.2 Lymphocytes # 0.9 Monocytes # 0.4 Eosinophils # 0.2 Basophils # 0.0 Nucleated Red Blood Cells # 0.0 Sodium Level 143 Potassium Level 3.6 Chloride Level 111 H Carbon Dioxide Level 27 Anion Gap 5 Blood Urea Nitrogen 14 Creatinine 0.50 Est Glomerular Filtrat Rate mL/min Glucose Level 93 Calcium Level 9.7 Phosphorus Level 3.4 Magnesium Level 1.8 Creatine Kinase 113 Subjective 24 Hr Interval Summary Musculoskeletal: bone/joint pain Exam/Review of Systems Exam Vitals Vital Signs Date Temp Pulse Resp B/P (MAP) Pulse Ox O2 O2 Flow FiO2 Time Delivery Rate 02/06/19 66 12:00 02/06/19 24 150/82 99 Room Air 11:00 (104) 02/06/19 98.2 08:00 Intake and Output 02/05/19 02/05/19 02/06/19 1515:00 23:00 07:00 IntakeIntake Total 1000 ml 640 ml OutputOutput Total 550 ml BalanceBalance 1000 ml 90 ml Constitutional: alert, oriented Respiratory: clear to auscultation Cardiovascular: regular rate and rhythm Skin: laceration (chest) Results Results 24hrs Laboratory Tests Test 02/06/19 05:23 White Blood Count 5.7 Red Blood Count 3.66 L Hemoglobin 9.8 L Hematocrit 31.3 L Mean Corpuscular Volume 85.5 Mean Corpuscular Hemoglobin 26.8 L Mean Corpuscular Hemoglobin Concent 31.3 L Red Cell Distribution Width 13.4 Platelet Count 229 Mean Platelet Volume 9.2 Immature Granulocytes % 0.500 H Neutrophils % 73.3 Lymphocytes % 15.8 Monocytes % 6.7 Eosinophils % 3.3 Basophils % 0.4 Nucleated Red Blood Cells % 0.0 Immature Granulocytes # 0.030 Neutrophils # 4.2 Lymphocytes # 0.9 Monocytes # 0.4 Eosinophils # 0.2 Basophils # 0.0 Nucleated Red Blood Cells # 0.0 Sodium Level 143 Potassium Level 3.6 Chloride Level 111 H Carbon Dioxide Level 27 Anion Gap 5 Blood Urea Nitrogen 14 Creatinine 0.50 Est Glomerular Filtrat Rate mL/min Glucose Level 93 Calcium Level 9.7 Phosphorus Level 3.4 Magnesium Level 1.8 Creatine Kinase 113 Medications Medication Current Medications IV Flush (NS 3 ml) 3 ml PER PROTOCOL IV ; Start 02/02/19 at 11:00 Acetaminophen (Tylenol Tab) 650 mg Q6H PRN PO .PAIN 1-3 OR TEMP Last administered on 02/02/19at 16:05; Admin Dose 650 MG; Start 02/02/19 at 11:00 Docusate Sodium (Colace) 100 mg Q12H PRN PO .CONSTIPATION; Start 02/02/19 at 11:00 Hydroxychloroquine Sulfate (Plaquenil) 200 mg DAILY PO Last administered on 02/06/19 09:16; Admin Dose 200 MG; Start 02/02/19 at 13:00 Prednisone (Prednisone) 2.5 mg QPM PO Last administered on 02/05/19 21:14; Admin Dose 2.5 MG; Start 02/02/19 at 21:00 Prednisone (Prednisone) 5 mg QAM PO Last administered on 02/06/19 09:15; Admin Dose 5 MG; Start 02/03/19 at 09:00 Enoxaparin Sodium (Lovenox) 75 mg Q12 SC Last administered on 02/06/19 09:17; Admin Dose 75 MG; Start 02/02/19 at 13:30 Ceftriaxone Sodium 50 ml @ 100 mls/hr Q24H IVPB Last administered on 02/05/19 19:13; Admin Dose 100 MLS/HR; Start 02/02/19 at 15:30 Tramadol HCl (Ultram) 50 mg Q6H PRN PO MODERATE PAIN LEVEL 4-6 Last administered on 02/04/19 20:29; Admin Dose 50 MG; Start 02/03/19 at 12:30 Morphine Sulfate (morphine) 2 mg Q4H PRN IV SEVERE PAIN LEVEL 7-10; Start 02/03/19 at 12:30 Metoprolol Tartrate (Lopressor) 25 mg BID PO Last administered on 02/06/19 09:16; Admin Dose 25 MG; Start 02/03/19 at 21:00 Atorvastatin Calcium (Lipitor) 40 mg HS PO Last administered on 02/05/19 21:14; Admin Dose 40 MG; Start 02/03/19 at 21:00 Acetaminophen (Tylenol Tab) 650 mg Q4H PRN PO NON-CARDIAC PAIN LEVEL (1-3); Start 02/05/19 at 16:30 Morphine Sulfate (morphine) 2 mg Q2H PRN IV FOR NON CARDIAC PAIN (4-10); Start 02/05/19 at 16:30 Al Hydrox/Mg Hydrox/Simethicone (Mag-Al Plus) 30 ml Q4H PRN PO GASTROINTESTINAL UPSET; Start 02/05/19 at 16:30 Ondansetron HCl (Zofran Inj) 4 mg Q4H PRN IV NAUSEA AND/OR VOMITING; Start 02/05/19 at 16:30 Azithromycin 250 ml @ 250 mls/hr DAILY IVPB Last administered on 02/06/19at 09:15; Admin Dose 250 MLS/HR; Start 02/06/19 at 09:00 MAXWELL CONDON Feb 06, 2019 15:24
[2019-02-06] MEDS: CEFTRIAXONE 1 GM/50 ML (PMX) 50 ML IVPB SCH (15:34)
--- NOTE | 2019-02-06 16:48 | CONS ---
Assessment/Plan Assessment/Plan Hospital Course (Demo Recall) IMPRESSION: 1. Positive troponin concerning for non-ST elevation myocardial infarction in patient status post fall-downtrended. NL EF by echo this admit. s/p LHC with no sig obstructive cad 2. Chest pain per report prior to admit to the hospital. 3. Hypertension, mildly elevated. 4. Status post fall, rule cardiac etiology, rule out cardiac arrhythmia. 5. Anemia. 6. Urinary tract infection. 7. Increase CK concerning for rhabdomyolysis. The patient is lying on the ground for a long time, likely etiology. 8. Fevers. Assess for source of infection. 9. Degenerative joint disease, on steroids. Recc: -Tele -serial ecg's -Continue BB and start ACEI to improve BP control -Continue statin -change lovenox to prophylaxis doses -Continue steroids/abx's Consultation Date/Type/Reason Admit Date/Time Feb 02, 2019 at 08:23 Initial Consult Date 02/03/19 Type of Consult Cardiology Reason for Consultation nstemi Requesting Provider: BARBARA CATALAN MD Date/Time of Note DATE: 02/06/19 TIME: 16:41 Exam/Review of Systems Vital Signs Vitals Vital Signs Date Temp Pulse Resp B/P (MAP) Pulse Ox O2 O2 Flow FiO2 Time Delivery Rate 02/06/19 98.3 75 19 151/69 97 Room Air 16:00 (96) Intake and Output 02/05/19 02/05/19 02/06/19 1515:00 23:00 07:00 IntakeIntake Total 1000 ml 640 ml OutputOutput Total 550 ml BalanceBalance 1000 ml 90 ml Exam Exam Review of Systems: CONSTITUTIONAL: No fevers, chills. PULMONARY: No sob CARDIOVASCULAR: No chest pain/palpitations GASTROINTESTINAL: No nausea/vomiting. GENITOURINARY: No hematuria/dysuria. MUSCULOSKELETAL: No myagias/arthalgias. PSYCHIATRIC: The patient denies depression. NEUROLOGIC: No weakness Constitutional: alert Psych: no complaints ENMT: mucosa pink and moist Neck: supple, jvd (9 cm water) Respiratory: diminished breath sounds (at bases/B) Cardiovascular: regular rate and rhythm Gastrointestinal: soft, non-tender Musculoskeletal: muscle tone (normal) Extremities: edema (none) Neurological: other (No focal stenosis) Labs Result Diagram: 3/08/19 52302/06/19 05 Results 24hrs Laboratory Tests Test 02/06/19 05:23 White Blood Count 5.7 Red Blood Count 3.66 L Hemoglobin 9.8 L Hematocrit 31.3 L Mean Corpuscular Volume 85.5 Mean Corpuscular Hemoglobin 26.8 L Mean Corpuscular Hemoglobin Concent 31.3 L Red Cell Distribution Width 13.4 Platelet Count 229 Mean Platelet Volume 9.2 Immature Granulocytes % 0.500 H Neutrophils % 73.3 Lymphocytes % 15.8 Monocytes % 6.7 Eosinophils % 3.3 Basophils % 0.4 Nucleated Red Blood Cells % 0.0 Immature Granulocytes # 0.030 Neutrophils # 4.2 Lymphocytes # 0.9 Monocytes # 0.4 Eosinophils # 0.2 Basophils # 0.0 Nucleated Red Blood Cells # 0.0 Sodium Level 143 Potassium Level 3.6 Chloride Level 111 H Carbon Dioxide Level 27 Anion Gap 5 Blood Urea Nitrogen 14 Creatinine 0.50 Est Glomerular Filtrat Rate mL/min Glucose Level 93 Calcium Level 9.7 Phosphorus Level 3.4 Magnesium Level 1.8 Creatine Kinase 113 Medications Medications Current Medications IV Flush (NS 3 ml) 3 ml PER PROTOCOL IV ; Start 02/02/19 at 11:00 Acetaminophen (Tylenol Tab) 650 mg Q6H PRN PO .PAIN 1-3 OR TEMP Last administered on 02/02/19at 16:05; Admin Dose 650 MG; Start 02/02/19 at 11:00 Docusate Sodium (Colace) 100 mg Q12H PRN PO .CONSTIPATION; Start 02/02/19 at 11:00 Hydroxychloroquine Sulfate (Plaquenil) 200 mg DAILY PO Last administered on 02/06/19at 09:16; Admin Dose 200 MG; Start 02/02/19 at 13:00 Prednisone (Prednisone) 2.5 mg QPM PO Last administered on 02/05/19 21:14; Admin Dose 2.5 MG; Start 02/02/19 at 21:00 Prednisone (Prednisone) 5 mg QAM PO Last administered on 02/06/19at 09:15; Admin Dose 5 MG; Start 02/03/19 at 09:00 Enoxaparin Sodium (Lovenox) 75 mg Q12 SC Last administered on 02/06/19 09:17; Admin Dose 75 MG; Start 02/02/19 at 13:30 Ceftriaxone Sodium 50 ml @ 100 mls/hr Q24H IVPB Last administered on 02/06/19 15:34; Admin Dose 100 MLS/HR; Start 02/02/19 at 15:30 Tramadol HCl (Ultram) 50 mg Q6H PRN PO MODERATE PAIN LEVEL 4-6 Last administer ed on 02/04/19 20:29; Admin Dose 50 MG; Start 02/03/19 at 12:30 Morphine Sulfate (morphine) 2 mg Q4H PRN IV SEVERE PAIN LEVEL 7-10; Start 02/03/19 at 12:30 Metoprolol Tartrate (Lopressor) 25 mg BID PO Last administered on 02/06/19 09:16; Admin Dose 25 MG; Start 02/03/19 at 21:00 Atorvastatin Calcium (Lipitor) 40 mg HS PO Last administered on 02/05/19at 21:14; Admin Dose 40 MG; Start 02/03/19 at 21:00 Acetaminophen (Tylenol Tab) 650 mg Q4H PRN PO NON-CARDIAC PAIN LEVEL (1-3); Start 02/05/19 at 16:30 Morphine Sulfate (morphine) 2 mg Q2H PRN IV FOR NON CARDIAC PAIN (4-10); Start 02/05/19 at 16:30 Al Hydrox/Mg Hydrox/Simethicone (Mag-Al Plus) 30 ml Q4H PRN PO GASTROINTESTINAL UPSET; Start 02/05/19 at 16:30 Ondansetron HCl (Zofran Inj) 4 mg Q4H PRN IV NAUSEA AND/OR VOMITING; Start 02/05/19 at 16:30 Azithromycin 250 ml @ 250 mls/hr DAILY IVPB Last administered on 02/06/19 09:15; Admin Dose 250 MLS/HR; Start 02/06/19 at 09:00 JUN NEUMANN Feb 06, 2019 16:48
[2019-02-06] MEDS: ATORVASTATIN 40 MG TAB PO SCH (20:44)
[2019-02-06] MEDS: predniSONE 2.5 MG TAB PO SCH (20:47)
[2019-02-06] MEDS: traMADol 50 MG TAB PO PRN (20:51)
[2019-02-07] VITALS (10 sets, daily range): BP systolic 124–155; BP diastolic 57–72; PULSE 65–75; RESP 17–20
[2019-02-07] MEDS: predniSONE 5 MG TAB PO SCH (08:24)
[2019-02-07] MEDS: CLOPIDOGREL 75 MG TAB PO SCH (08:24)
[2019-02-07] MEDS: METOPROLOL 25 MG TAB PO SCH ×2 (08:25→21:23)
[2019-02-07] MEDS: ENOXAPARIN 40 MG/0.4 ML SYG SC SCH (08:43)
[2019-02-07] MEDS ORDERED: BENAZEPRIL 10 MG TAB PO SCH (09:00)
[2019-02-07] MEDS: AZITHROMYCIN 500MG/NS (PMX) 250 ML IVPB SCH (09:23)
[2019-02-07] MEDS: HYDROXYCHLOROQUINE 200 MG TAB PO SCH (09:23)
[2019-02-07] MEDS: CEFTRIAXONE 1 GM/50 ML (PMX) 50 ML IVPB SCH (14:34)
--- NOTE | 2019-02-07 15:12 | CONS ---
Assessment/Plan Assessment/Plan Hospital Course (Demo Recall) IMPRESSION: 1. Positive troponin concerning for non-ST elevation myocardial infarction in patient status post fall-downtrended. NL EF by echo this admit. s/p LHC with no sig obstructive cad 2. Chest pain per report prior to admit to the hospital. 3. Hypertension, mildly elevated. 4. Status post fall, rule cardiac etiology, rule out cardiac arrhythmia. 5. Anemia. 6. Urinary tract infection. 7. Increase CK concerning for rhabdomyolysis. The patient is lying on the ground for a long time, likely etiology. 8. Fevers. Assess for source of infection. 9. Degenerative joint disease, on steroids. Recc: -Tele -serial ecg's -Continue BB and ACEI and consider further increase to improve BP control -Continue statin -Continue steroids/abx's -ambulation/PT Consultation Date/Type/Reason Admit Date/Time Feb 02, 2019 at 08:23 Initial Consult Date 02/03/19 Type of Consult Cardiology Reason for Consultation Nstemi Requesting Provider: BARBARA CATALAN MD Date/Time of Note DATE: 02/07/19 TIME: 15:10 Exam/Review of Systems Vital Signs Vitals Vital Signs Date Temp Pulse Resp B/P (MAP) Pulse Ox O2 O2 Flow FiO2 Time Delivery Rate 02/07/19 69 12:01 02/07/19 97.9 17 155/72 96 11:24 (99) 02/07/19 Room Air 08:26 Intake and Output 02/06/19 02/06/19 02/07/19 1414:59 22:59 06:59 IntakeIntake Total 610 ml 375 ml 120 ml BalanceBalance 610 ml 375 ml 120 ml Exam Exam Review of Systems: CONSTITUTIONAL: No fevers, chills. PULMONARY: No sob CARDIOVASCULAR: No chest pain/palpitations GASTROINTESTINAL: No nausea/vomiting. GENITOURINARY: No hematuria/dysuria. MUSCULOSKELETAL: No myagias/arthalgias. PSYCHIATRIC: The patient denies depression. NEUROLOGIC: No weakness Constitutional: alert Psych: no complaints Head: normocephalic ENMT: mucosa pink and moist Neck: supple, jvd (9 cm water) Respiratory: diminished breath sounds (at bases/B) Cardiovascular: regular rate and rhythm Gastrointestinal: soft, non-tender Musculoskeletal: muscle weakness (generalized) Extremities: edema (none) Neurological: other (No focal deficits) Labs Result Diagram: 02/07/1937 02/07/19 0537 Results 24hrs Laboratory Tests Test 02/07/19 05:37 White Blood Count 7.2 # Red Blood Count 3.60 L Hemoglobin 9.7 L Hematocrit 30.6 L Mean Corpuscular Volume 85.0 Mean Corpuscular Hemoglobin 26.9 L Mean Corpuscular Hemoglobin Concent 31.7 L Red Cell Distribution Width 13.6 Platelet Count 242 Mean Platelet Volume 9.3 Immature Granulocytes % 0.700 H Neutrophils % 72.8 Lymphocytes % 15.3 Monocytes % 8.1 Eosinophils % 2.8 Basophils % 0.3 Nucleated Red Blood Cells % 0.0 Immature Granulocytes # 0.050 H Neutrophils # 5.2 Lymphocytes # 1.1 Monocytes # 0.6 Eosinophils # 0.2 Basophils # 0.0 Nucleated Red Blood Cells # 0.0 Sodium Level 141 Potassium Level 4.0 Chloride Level 108 Carbon Dioxide Level 26 Anion Gap 7 Blood Urea Nitrogen 19 Creatinine 0.53 Est Glomerular Filtrat Rate mL/min Glucose Level 107 Calcium Level 9.6 Medications Medications Current Medications IV Flush (NS 3 ml) 3 ml PER PROTOCOL IV ; Start 02/02/19 at 11:00 Acetaminophen (Tylenol Tab) 650 mg Q6H PRN PO .PAIN 1-3 OR TEMP Last administered on 02/02/19at 16:05; Admin Dose 650 MG; Start 02/02/19 at 11:00 Docusate Sodium (Colace) 100 mg Q12H PRN PO .CONSTIPATION; Start 02/02/19 at 11:00 Hydroxychloroquine Sulfate (Plaquenil) 200 mg DAILY PO Last administered on 02/07/19at 09:23; Admin Dose 200 MG; Start 02/02/19 at 13:00 Prednisone (Prednisone) 2.5 mg QPM PO Last administered on 02/06/19at 20:47; Admin Dose 2.5 MG; Start 02/02/19 at 21:00 Prednisone (Prednisone) 5 mg QAM PO Last administered on 02/07/19 08:24; Admin Dose 5 MG; Start 02/03/19 at 09:00 Ceftriaxone Sodium 50 ml @ 100 mls/hr Q24H IVPB Last administered on 02/07/19at 14:34; Admin Dose 100 MLS/HR; Start 02/02/19 at 15:30 Tramadol HCl (Ultram) 50 mg Q6H PRN PO MODERATE PAIN LEVEL 4-6 Last admi nistered on 02/06/19 20:51; Admin Dose 50 MG; Start 02/03/19 at 12:30 Morphine Sulfate (morphine) 2 mg Q4H PRN IV SEVERE PAIN LEVEL 7-10; Start 02/03/19 at 12:30 Metoprolol Tartrate (Lopressor) 25 mg BID PO Last administered on 02/07/19 08:25; Admin Dose 25 MG; Start 02/03/19 at 21:00 Atorvastatin Calcium (Lipitor) 40 mg HS PO Last administered on 02/06/19 20:44; Admin Dose 40 MG; Start 02/03/19 at 21:00 Acetaminophen (Tylenol Tab) 650 mg Q4H PRN PO NON-CARDIAC PAIN LEVEL (1-3); Start 02/05/19 at 16:30 Morphine Sulfate (morphine) 2 mg Q2H PRN IV FOR NON CARDIAC PAIN (4-10); Start 02/05/19 at 16:30 Al Hydrox/Mg Hydrox/Simethicone (Mag-Al Plus) 30 ml Q4H PRN PO GASTROINTESTINAL UPSET; Start 02/05/19 at 16:30 Ondansetron HCl (Zofran Inj) 4 mg Q4H PRN IV NAUSEA AND/OR VOMITING; Start 02/05/19 at 16:30 Azithromycin 250 ml @ 250 mls/hr DAILY IVPB Last administered on 02/07/19 09:23; Admin Dose 250 MLS/HR; Start 02/06/19 at 09:00 Benazepril HCl (Lotensin) 10 mg DAILY PO Last administered on 02/07/19 08:25; Admin Dose 10 MG; Start 02/07/19 at 09:00 Clopidogrel Bisulfate (plaVIX) 75 mg DAILY PO Last administered on 02/07/19 08:24; Admin Dose 75 MG; Start 02/07/19 at 09:00 Enoxaparin Sodium (Lovenox) 40 mg DAILY SC Last administered on 02/07/19 08:43; Admin Dose 40 MG; Start 02/07/19 at 09:00 Clonidine (Catapres) 0.1 mg Q6H PRN PO ELEVATED SYSTOLIC BP Last administered on 3/9/19at 23:16; Admin Dose 0.1 MG; Start 02/06/19 at 22:30 JUN NEUMANN Feb 07, 2019 15:12
--- NOTE | 2019-02-07 17:26 | PN ---
Date/Time of Note Date/Time of Note DATE: 02/07/19 TIME: 17:24 Assessment/Plan VTE Prophylaxis Risk score (from [facility] [place]0 risk: 8 SCD applied (from [facility] [place]): Yes SCD contraindicated: other Pharmacological prophylaxis: other Pharm contraindication: other Lines/Catheters IV [facility]ter [facility] (from [facility] Saline Lock Urinary Cath still in place: No Assessment/Plan Hospital Course 1. Status post fall. s/p cath 2. Elevated troponin, likely secondary to ACS. S/p left heart catheterization. 3. weakness 4. Rhabdomyolysis likely secondary to prolonged lying down on the ground status post fall improvement status post hydration, resolveed 5. History of arthritis. 6. Hypercalcemia , resolved 7. Arthritis on steroids. 8 Leukocytosis improved s/p iv abx, normal now 9 hx rheumatoid arthritis 10 UTI> 100, 000 cfu mixed organisms plan pt ot Result Diagram: 02/07/1937 02/07/1937 Results 24hrs Laboratory Tests Test 02/07/19 05:37 White Blood Count 7.2 # Red Blood Count 3.60 L Hemoglobin 9.7 L Hematocrit 30.6 L Mean Corpuscular Volume 85.0 Mean Corpuscular Hemoglobin 26.9 L Mean Corpuscular Hemoglobin Concent 31.7 L Red Cell Distribution Width 13.6 Platelet Count 242 Mean Platelet Volume 9.3 Immature Granulocytes % 0.700 H Neutrophils % 72.8 Lymphocytes % 15.3 Monocytes % 8.1 Eosinophils % 2.8 Basophils % 0.3 Nucleated Red Blood Cells % 0.0 Immature Granulocytes # 0.050 H Neutrophils # 5.2 Lymphocytes # 1.1 Monocytes # 0.6 Eosinophils # 0.2 Basophils # 0.0 Nucleated Red Blood Cells # 0.0 Sodium Level 141 Potassium Level 4.0 Chloride Level 108 Carbon Dioxide Level 26 Anion Gap 7 Blood Urea Nitrogen 19 Creatinine 0.53 Est Glomerular Filtrat Rate mL/min Glucose Level 107 Calcium Level 9.6 Subjective 24 Hr Interval Summary Subjective hx not possible: other (weakness need pt ot) Cardiovascular: no complaints Gastrointestinal: no complaints Genitourinary: no complaints Exam/Review of Systems Exam Vitals Vital Signs Date Temp Pulse Resp B/P (MAP) Pulse Ox O2 O2 Flow FiO2 Time Delivery Rate 02/07/19 72 16:01 02/07/19 97.9 18 132/61 97 15:19 (84) 02/07/19 Room Air 08:26 Intake and Output 02/06/19 02/06/19 02/07/19 1515:00 23:00 07:00 IntakeIntake Total 610 ml 375 ml 120 ml BalanceBalance 610 ml 375 ml 120 ml Neck: supple Respiratory: clear to auscultation Cardiovascular: regular rate and rhythm Gastrointestinal: soft, bowel sounds (+) Extremities: edema (+) Results Results 24hrs Laboratory Tests Test 02/07/19 05:37 White Blood Count 7.2 # Red Blood Count 3.60 L Hemoglobin 9.7 L Hematocrit 30.6 L Mean Corpuscular Volume 85.0 Mean Corpuscular Hemoglobin 26.9 L Mean Corpuscular Hemoglobin Concent 31.7 L Red Cell Distribution Width 13.6 Platelet Count 242 Mean Platelet Volume 9.3 Immature Granulocytes % 0.700 H Neutrophils % 72.8 Lymphocytes % 15.3 Monocytes % 8.1 Eosinophils % 2.8 Basophils % 0.3 Nucleated Red Blood Cells % 0.0 Immature Granulocytes # 0.050 H Neutrophils # 5.2 Lymphocytes # 1.1 Monocytes # 0.6 Eosinophils # 0.2 Basophils # 0.0 Nucleated Red Blood Cells # 0.0 Sodium Level 141 Potassium Level 4.0 Chloride Level 108 Carbon Dioxide Level 26 Anion Gap 7 Blood Urea Nitrogen 19 Creatinine 0.53 Est Glomerular Filtrat Rate mL/min Glucose Level 107 Calcium Level 9.6 Medications Medication Current Medications IV Flush (NS 3 ml) 3 ml PER PROTOCOL IV ; Start 02/02/19 at 11:00 Acetaminophen (Tylenol Tab) 650 mg Q6H PRN PO .PAIN 1-3 OR TEMP Last administered on 02/02/19at 16:05; Admin Dose 650 MG; Start 02/02/19 at 11:00 Docusate Sodium (Colace) 100 mg Q12H PRN PO .CONSTIPATION; Start 02/02/19 at 11:00 Hydroxychloroquine Sulfate (Plaquenil) 200 mg DAILY PO Last administered on 02/07/19at 09:23; Admin Dose 200 MG; Start 02/02/19 at 13:00 Prednisone (Prednisone) 2.5 mg QPM PO Last administered on 02/06/19at 20:47; Admin Dose 2.5 MG; Start 02/02/19 at 21:00 Prednisone (Prednisone) 5 mg QAM PO Last administered on 02/07/19 08:24; Admin Dose 5 MG; Start 02/03/19 at 09:00 Ceftriaxone Sodium 50 ml @ 100 mls/hr Q24H IVPB Last administered on 02/07/19 14:34; Admin Dose 100 MLS/HR; Start 02/02/19 at 15:30 Tramadol HCl (Ultram) 50 mg Q6H PRN PO MODERATE PAIN LEVEL 4-6 Last administered on 02/06/19 20:51; Admin Dose 50 MG; Start 02/03/19 at 12:30 Morphine Sulfate (morphine) 2 mg Q4H PRN IV SEVERE PAIN LEVEL 7-10; Start 02/03/19 at 12:30 Metoprolol Tartrate (Lopressor) 25 mg BID PO Last administered on 02/07/19 08:25; Admin Dose 25 MG; Start 02/03/19 at 21:00 Atorvastatin Calcium (Lipitor) 40 mg HS PO Last administered on 02/06/19 20:44; Admin Dose 40 MG; Start 02/03/19 at 21:00 Acetaminophen (Tylenol Tab) 650 mg Q4H PRN PO NON-CARDIAC PAIN LEVEL (1-3); Start 02/05/19 at 16:30 Morphine Sulfate (morphine) 2 mg Q2H PRN IV FOR NON CARDIAC PAIN (4-10); Start 02/05/19 at 16:30 Al Hydrox/Mg Hydrox/Simethicone (Mag-Al Plus) 30 ml Q4H PRN PO GASTROINTESTINAL UPSET; Start 02/05/19 at 16:30 Ondansetron HCl (Zofran Inj) 4 mg Q4H PRN IV NAUSEA AND/OR VOMITING; Start 02/05/19 at 16:30 Azithromycin 250 ml @ 250 mls/hr DAILY IVPB Last administered on 02/07/19 09:23; Admin Dose 250 MLS/HR; Start 02/06/19 at 09:00 Clopidogrel Bisulfate (plaVIX) 75 mg DAILY PO Last administered on 02/07/19 08:24; Admin Dose 75 MG; Start 02/07/19 at 09:00 Enoxaparin Sodium (Lovenox) 40 mg DAILY SC Last administered on 02/07/19 08:43; Admin Dose 40 MG; Start 02/07/19 at 09:00 Clonidine (Catapres) 0.1 mg Q6H PRN PO ELEVATED SYSTOLIC BP Last administered on 02/06/19at 23:16; Admin Dose 0.1 MG; Start 02/06/19 at 22:30 Benazepril HCl (Lotensin) 10 mg BID PO ; Start 02/07/19 at 21:00 CRISTEL OBRIEN MD Feb 07, 2019 17:26
[2019-02-07] MEDS: traMADol 50 MG TAB PO PRN (21:18)
[2019-02-07] MEDS: ATORVASTATIN 40 MG TAB PO SCH (21:18)
[2019-02-07] MEDS: BENAZEPRIL 10 MG TAB PO SCH (21:23)
[2019-02-07] MEDS: predniSONE 2.5 MG TAB PO SCH (21:34)
[2019-02-08] VITALS (8 sets, daily range): BP systolic 124–160; BP diastolic 72–87; PULSE 60–74; RESP 18–20
[2019-02-08] MEDS: HYDROXYCHLOROQUINE 200 MG TAB PO SCH (09:03)
[2019-02-08] MEDS: CLOPIDOGREL 75 MG TAB PO SCH (09:03)
[2019-02-08] MEDS: predniSONE 5 MG TAB PO SCH (09:03)
[2019-02-08] MEDS: METOPROLOL 25 MG TAB PO SCH (09:04)
[2019-02-08] MEDS: BENAZEPRIL 10 MG TAB PO SCH (09:04)
[2019-02-08] MEDS: AZITHROMYCIN 500MG/NS (PMX) 250 ML IVPB SCH (09:04)
[2019-02-08] MEDS: ENOXAPARIN 40 MG/0.4 ML SYG SC SCH (09:23)
--- NOTE | 2019-02-08 10:59 | PDOCDIS ---
Discharge Instructions DIAGNOSIS Discharge Diagnosis s/p fall CONDITION [id number] Patient Condition: [id number] Fair HOME CARE INSTRUCTIONS: [id number] Diet Instructions: [id number] Low Fat /Cholesterol ACTIVITY: [id number] Activity Restrictions: [id number] Slowly Increase Activity Rest between Activity No Sexual Activity FOLLOW UP/APPOINTMENTS Follow-up Plan Follow with PCP 1-2 weeks f Up with cardiology 1 to2 weeks Follow up with the edge grinder machine in 1-2 weeks BARBARA CATALAN MD Feb 08, 2019 10:59
[2019-02-08] MEDS ORDERED: ATOR40TA68 PO (11:08)
[2019-02-08] MEDS ORDERED: BENA10TA4 PO (11:08)
[2019-02-08] MEDS ORDERED: CLOP75TA28 PO (11:09)
[2019-02-08] MEDS ORDERED: METO-448 PO (11:09)
[2019-02-08] MEDS ORDERED: TRAM50TA2 PO (11:09)
[2019-02-08] MEDS ORDERED: LEVO500T48 PO (11:17)
--- NOTE | 2019-02-08 13:33 | CONS ---
Assessment/Plan Assessment/Plan Hospital Course (Demo Recall) IMPRESSION: 1. Positive troponin concerning for non-ST elevation myocardial infarction in patient status post fall-downtrended. NL EF by echo this admit. s/p LHC with no sig obstructive cad 2. Chest pain per report prior to admit to the hospital. 3. Hypertension, mildly elevated. 4. Status post fall, rule cardiac etiology, rule out cardiac arrhythmia. 5. Anemia. 6. Urinary tract infection. 7. Increase CK concerning for rhabdomyolysis. The patient is lying on the ground for a long time, likely etiology. 8. Fevers. Assess for source of infection. 9. Degenerative joint disease, on steroids. Recc: -Tele -serial ecg's -Continue BB and ACEI and consider further increase to improve BP control -continue plavix -Continue statin -Continue steroids/abx's -ambulation/PT -ok for d/c planning on plavix as well Consultation Date/Type/Reason Admit Date/Time Feb 02, 2019 at 08:23 Initial Consult Date 02/03/19 Type of Consult Cardiology Reason for Consultation nstemi Requesting Provider: BARBARA CATALAN MD Date/Time of Note DATE: 02/08/19 TIME: 13:30 Exam/Review of Systems Vital Signs Vitals Vital Signs Date Temp Pulse Resp B/P (MAP) Pulse Ox O2 O2 Flow FiO2 Time Delivery Rate 02/08/19 65 12:28 02/08/19 98.0 18 124/77 98 11:14 (93) 02/07/19 Room Air 08:26 Intake and Output 02/07/19 02/07/19 02/08/19 1414:59 22:59 06:59 IntakeIntake Total 250 ml 700 ml BalanceBalance 250 ml 700 ml Exam Exam Review of Systems: CONSTITUTIONAL: No fevers, chills. PULMONARY: No sob CARDIOVASCULAR: No chest pain/palpitations GASTROINTESTINAL: No nausea/vomiting. GENITOURINARY: No hematuria/dysuria. MUSCULOSKELETAL: No myagias/arthalgias. PSYCHIATRIC: The patient denies depression. NEUROLOGIC: No weakness Constitutional: alert, oriented Psych: no complaints Head: normocephalic ENMT: mucosa pink and moist Neck: supple, jvd (8 cm water) Respiratory: clear to auscultation Cardiovascular: regular rate and rhythm Gastrointestinal: soft, non-tender Musculoskeletal: muscle tone (normal) Extremities: edema (none) Neurological: other (No focal deficits) Labs Result Diagram: 02/07/1953602/07/19536 Medications Medications Current Medications IV Flush (NS 3 ml) 3 ml PER PROTOCOL IV Last administered on 02/07/19 21:17; Admin Dose 3 ML; Start 02/02/19 at 11:00 Acetaminophen (Tylenol Tab) 650 mg Q6H PRN PO .PAIN 1-3 OR TEMP Last administered on 02/02/19 16:05; Admin Dose 650 MG; Start 02/02/19 at 11:00 Docusate Sodium (Colace) 100 mg Q12H PRN PO .CONSTIPATION; Start 02/02/19 at 11:00 Hydroxychloroquine Sulfate (Plaquenil) 200 mg DAILY PO Last administered on 02/08/19 09:03; Admin Dose 200 MG; Start 02/02/19 at 13:00 Prednisone (Prednisone) 2.5 mg QPM PO Last administered on 02/07/19 21:34; Admin Dose 2.5 MG; Start 02/02/19 at 21:00 Prednisone (Prednisone) 5 mg QAM PO Last administered on 02/08/19 09:03; Admin Dose 5 MG; Start 02/03/19 at 09:00 Ceftriaxone Sodium 50 ml @ 100 mls/hr Q24H IVPB Last administered on 02/07/19 14:34; Admin Dose 100 MLS/HR; Start 02/02/19 at 15:30 Tramadol HCl (Ultram) 50 mg Q6H PRN PO MODERATE PAIN LEVEL 4-6 Last administered on 02/07/19 21:18; Admin Dose 50 MG; Start 02/03/19 at 12:30 Morphine Sulfate (morphine) 2 mg Q4H PRN IV SEVERE PAIN LEVEL 7-10; Start 02/03/19 at 12:30 Metoprolol Tartrate (Lopressor) 25 mg BID PO Last administered on 02/08/19 09:04; Admin Dose 25 MG; Start 02/03/19 at 21:00 Atorvastatin Calcium (Lipitor) 40 mg HS PO Last administered on 02/07/19 21:18; Admin Dose 40 MG; Start 02/03/19 at 21:00 Acetaminophen (Tylenol Tab) 650 mg Q4H PRN PO NON-CARDIAC PAIN LEVEL (1-3); Start 02/05/19 at 16:30 Morphine Sulfate (morphine) 2 mg Q2H PRN IV FOR NON CARDIAC PAIN (4-10); Start 02/05/19 at 16:30 Al Hydrox/Mg Hydrox/Simethicone (Mag-Al Plus) 30 ml Q4H PRN PO GASTROINTESTINAL UPSET; Start 02/05/19 at 16:30 Ondansetron HCl (Zofran Inj) 4 mg Q4H PRN IV NAUSEA AND/OR VOMITING; Start 02/05/19 at 16:30 Azithromycin 250 ml @ 250 mls/hr DAILY IVPB Last administered on 02/08/19 09:04; Admin Dose 250 MLS/HR; Start 02/06/19 at 09:00 Clopidogrel Bisulfate (plaVIX) 75 mg DAILY PO Last administered on 02/08/19 09:03; Admin Dose 75 MG; Start 02/07/19 at 09:00 Enoxaparin Sodium (Lovenox) 40 mg DAILY SC Last administered on 02/08/19 09:23; Admin Dose 40 MG; Start 02/07/19 at 09:00 Clonidine (Catapres) 0.1 mg Q6H PRN PO ELEVATED SYSTOLIC BP Last administered on 02/06/19 23:16; Admin Dose 0.1 MG; Start 02/06/19 at 22:30 Benazepril HCl (Lotensin) 10 mg BID PO Last administered on 02/08/19 09:04; Admin Dose 10 MG; Start 02/07/19 at 21:00 JUN NEUMANN Feb 08, 2019 13:33
--- NOTE | 2019-02-08 17:53 | DS ---
DATE OF ADMISSION: 02/02/2019 DATE OF DISCHARGE: 02/08/2019 HISTORY OF PRESENTING ILLNESS AND HOSPITAL COURSE: This is a 73-year-old female with past medical hi story of hypertension, hyperlipidemia, presented to emergency department after she had fallen at home . Per the patient, she woke up from her bed last night, she felt dizzy and hit against a dresser. S he was laid against her dresser for a number of hours until the family member found her. She was fee ling also weak prior to falling. The patient was having some intermittent left chest pain radiating to the back for a few days. On admission, vital signs were temperature 99.7, heart rate 115, respira tions 18, blood pressure 137/85, saturating 96%. The patient had white count of 17.4, BUN of 35, cre atinine 0.7, received NS, Zithromax, Motrin, aspirin, Zofran. EKG did not show any acute ST or T wav e changes. The patient also had a chest x-ray that showed increased density at the bases likely due to atelectasis. Left basilar infiltrate could not be ruled out. The patient had elevation of tropon in of 0.674 and was admitted for further management. The patient was found to have troponins elevate d to 0.518, 0.412 and then came down to 0.169. The patient was seen by cardiology consultation with Dr. Neumann and recommendations were followed. She was started on Plavix, statin, beta sandrita and a lso GILMER. The patient also had echo that showed EF of 65%. The patient also has elevated D-dimer, song d a CT of the chest that showed no evidence of pulmonary embolism, borderline cardiomegaly, right thy roid lobe was markedly enlarged, heterogeneous substernal extension causing mild deviation of the tra herb, consider thyroid correlation. The patient had severe pain in the shoulders. Shoulder x-rays w ere done which showed osteolysis of the right clavicle. No acute fracture. She also had shoulder x- ray on the left that showed atherosclerosis. The patient also had lower extremity DVT that was negat agnes and ultrasound that was negative for DVT. Blood cultures were negative. UA showed up mixed gram -positive organism greater than 100,000. The patient was seen by Dr. Neumann and had a coronary deysi ogram that was performed on 02/05/2019 and had a very mild nonobstructive coronary artery disease, hi gh normal left filling pressures. The patient was admitted to ICU. After the procedure, the patient was feeling better. The patient was seen by physical therapy and was ambulating 75 feet. Currently , the patient is stable to be discharged home. FINAL DISCHARGE DIAGNOSES: 1. Status post fall. The patient was feeling dizzy before the episode having chest pain secondary t o [id number] myocardial infarction, status post coronary angiogram and nonobstructive coronary artery disease. 2. Elevated troponin secondary to non-ST elevation myocardial infarction. 3. Fever, leukocytosis secondary to pneumonia/urinary tract infection. 4. Rhabdomyolysis, status post fluid hydration, status post fall. 5. Leukocytosis, improved. 6. Rheumatoid arthritis. 7. Anemia. 8. Hypertension. DISCHARGE CONDITION: Good. Arrangements were done for home health. DISCHARGE INSTRUCTIONS: Per cardiology: 1. Okay to give Plavix not aspirin. 2. Plavix 75. 3. Benazepril 10 b.i.d. 4. Atorvastatin 40. 5. Metoprolol 25 b.i.d. 6. Tramadol 50 mg p.o. q.6 p.r.n. pain. 7. Calcium. 8. Continue ergocalciferol. 9. Continue folic acid. 10. Plaquenil 200. 11. Prilosec 20. 12. Prednisone 2.5 q.p.m. and 5 mg q.a.m. 13. Levaquin to complete the course for 4 days. DISCHARGE INSTRUCTIONS: The patient was instructed to follow up with PCP in 1 to 2 weeks, cardiology in 1 to 2 weeks and rheumatology 2 to 3 weeks. The patient also needs thyroid ultrasound as an outp atient. Dictated By: BARBARA MCKEON/MANJULA Conf#: [id number] DID#: [id number] CC: JUN NEUMANN MD;*End*
== END 2019-02-08 16:12 | disposition home health service (06) | DRG 280 ==
LOC: E/R 01:47 → 6WM 08:23 → ICU 02-05 16:35 → 6WM 02-06 22:35 → TEL 02-07 23:34
PROVIDERS: ADMIT Internal Medicine; ATTEND Internal Medicine
PROC: B2011ZZ Plain Radiography of Multiple Coronary Arteries using Low Osmolar Contrast (ICD-10-PCS; 2019-02-05)
PROC: B2051ZZ Plain Radiography of Left Heart using Low Osmolar Contrast (ICD-10-PCS; 2019-02-05)
PROC: 4A023N7 Measurement of Cardiac Sampling and Pressure, Left Heart, Percutaneous Approach (ICD-10-PCS; principal; 2019-02-05 15:00)
DX: I21.4 Non-ST elevation (NSTEMI) myocardial infarction (principal); J18.9 Pneumonia, unspecified organism; R65.10 Systemic inflammatory response syndrome (SIRS) of non-infectious origin without acute organ dysfunction; M62.82 Rhabdomyolysis; N39.0 Urinary tract infection, site not specified; I24.9 Acute ischemic heart disease, unspecified; I10 Essential (primary) hypertension; E83.52 Hypercalcemia; M19.90 Unspecified osteoarthritis, unspecified site; K21.9 Gastro-esophageal reflux disease without esophagitis; D64.9 Anemia, unspecified; D72.829 Elevated white blood cell count, unspecified; M06.9 Rheumatoid arthritis, unspecified; W19.XXXA Unspecified fall, initial encounter; I25.10 Atherosclerotic heart disease of native coronary artery without angina pectoris
CPT/HCPCS: 36415; 70450; 71045; 71275; 73030; 80048; 80061; 81001; 82465; 82550; 82553; 83735; 84100; 84484; 85025; 85378; 85610; 85730; 87040; 87081; 87086; 93005; 93306; 93458; 93970; 96360; 97161; C1887; C9113; J0456; J0696; J1644; J1650; J2250; J3010; J7030; J7040; J7050; J7512; Q9967